=== PATIENT | male | born 1935 | race Caucasian/White ===

== ENCOUNTER 2017-07-19 14:23 | Inpatient (IN) | payer MEDICARE, BC ==
[2017-07-19] MEDS ORDERED: ASPIRIN 325 MG TAB PO STA (14:59)
--- NOTE | 2017-07-19 14:59 | ED ---
General Adult HPI - General Chief complaint: Shortness of Breath Stated complaint: Difficulty Breathing Time Seen by Provider: 07/19/17 14:28 Source: patient, EMS, RN notes reviewed, old records reviewed Mode of arrival: EMS Limitations: no limitations - History of Present Illness Initial comments: Patient is a pleasant 81-year-old male presenting to the emergency department with difficulty in breathing. Onset of symptoms was a couple of days ago. Patient is a somewhat poor historian. Patient was transferred from an outside facility for cardiology evaluation. Patient denies any chest discomfort. Patient does complain of cough and shortness of breath. Cough is been nonproductive. No fevers. Patient does complain of leg swelling. Patient was diagnosed with congestive heart failure. Patient was treated with Lasix as well as Rocephin and heparin. Patient reportedly has some history of atrial fibrillation. - Related Data Home Medications Medication Instructions Recorded Confirmed Levothyroxine Sodium [Synthroid] 112 mcg PO DAILY 02/11/15 07/19/17 Tamsulosin HCl 0.4 mg PO DAILY 02/11/15 07/19/17 Atorvastatin [Lipitor] 10 mg PO DAILY 02/12/15 07/19/17 hydrALAZINE HCL [Apresoline] 50 mg PO DAILY 07/19/17 07/19/17 Previous Rx's Medication Instructions Recorded Aspirin EC [Ecotrin] 325 mg PO DAILY #30 tablet. 02/14/15 Thiamine [Vitamin B-1] 100 mg PO DAILY@1200 #30 tab 02/14/15 Allergies Allergy/AdvReac Type Severity Reaction Status Date / Time No Known Allergies Allergy Verified 07/19/17 15:00 Review of Systems ROS Statement: Those systems with pertinent positive or pertinent negative responses have been documented in the HPI. ROS Other: All systems not noted in ROS Statement are negative. Constitutional: Denies: fever Eyes: Denies: eye pain ENT: Denies: ear pain Respiratory: Reports: cough, dyspnea Cardiovascular: Denies: chest pain Endocrine: Denies: fatigue Gastrointestinal: Denies: abdominal pain Genitourinary: Denies: dysuria Musculoskeletal: Denies: back pain Skin: Denies: rash Neurological: Denies: weakness Past Medical History Past Medical History: Atrial Fibrillation, Heart Failure History of Any Multi-Drug Resistant Organisms: None Reported Past Surgical History: Back Surgery Past Anesthesia/Blood Transfusion Reactions: No Reported Reaction Past Psychological History: No Psychological Hx Reported Smoking Status: Former smoker Past Alcohol Use History: None Reported Past Drug Use History: None Reported - Past Family History Mother Family Medical History: No Reported History General Exam Limitations: no limitations General appearance: alert, in no apparent distress Head exam: Present: atraumatic Eye exam: Present: other (Mild right periorbital edema) ENT exam: Present: normal oropharynx Neck exam: Present: normal inspection Respiratory exam: Present: wheezes, rales Cardiovascular Exam: Present: tachycardia, irregular rhythm GI/Abdominal exam: Present: soft. Absent: tenderness Extremities exam: Present: pedal edema. Absent: calf tenderness Neurological exam: Present: alert Psychiatric exam: Present: normal affect, normal mood Skin exam: Present: normal color Course Vital Signs 07/19/17 07/19/17 14:27 14:52 Temperature 97.9 F Pulse Rate 132 H Pulse Rate [ 132 H Apron Man ] Respiratory 20 Rate Blood Pressure 148/96 O2 Sat by Pulse 96 Oximetry - Reevaluation(s) Reevaluation #1: 07/19/17 14:58 Dr. Reyes has been paged for admission for hospital call. 07/19/17 15:39 Case was discussed with Dr. Reyes, who will admit. EKG Findings - EKG Comments: EKG Findings:: Narrow complex tachycardia at 130. OH 214. QRS 146. QT 382. QTC 562. Right axis. Right bundle branch block. No acute ST change. Medical Decision Making - Lab Data Result diagrams: 07/19/17 15:04 07/19/17 15:04 Disposition Clinical Impression: Congestive heart failure Disposition: ADMITTED IP TO THIS HOSP Decision Time: 14:59
[2017-07-19] MEDS ORDERED: DILTIAZEM 5 MG/ML 5 ML VIAL IVP STA (15:01)
[2017-07-19] MEDS ORDERED: HEPARIN SODIUM,PORCINE 5,000 UNIT/ML 1 ML VIAL IV PRN (15:01)
[2017-07-19] MEDS ORDERED: DILTIAZEM 125 MG in SODIUM CHLORIDE 0.9% 100 ML IV ONE (15:01)
[2017-07-19 15:14] LABS: Basophils % (A) 0 %; Eosinophils % (A) 0 %; HCT 42.2 % (39.0-53.0); Hypochromasia Slight; Lymphocytes # (A) 0.3 k/uL (1.0-4.8); Lymphocytes % (A) 4 %; MCH 31.2 pg (25.0-35.0); MCHC 30.9 g/dL (31.0-37.0); Macrocytosis Slight; Mean Platelet Volume 7.7; Monocytes # (A) 0.1 k/uL (0-1.0); Monocytes % (A) 1 %; Neutrophils # (A) 6.7 k/uL (1.3-7.7); Neutrophils % (A) 93 %; Platelet Count 173 k/uL (150-450); RBC 4.18 m/uL (4.30-5.90); RDW 13.5 % (11.5-15.5); WBC 7.2 k/uL (3.8-10.6)
[2017-07-19 15:23] LABS: INR 1.1 (<1.2); Partial Thromboplastin Time 36.2 sec (22.0-30.0)
[2017-07-19 15:25] LABS: Albumin 3.7 g/dL (3.5-5.0); Calcium 8.8 mg/dL (8.4-10.2); Potassium 4.7 mmol/L (3.5-5.1); Total Bilirubin 0.4 mg/dL (0.2-1.3); Total Protein 6.5 g/dL (6.3-8.2)
[2017-07-19 15:47] LABS: Troponin I 0.033 ng/mL (0.000-0.034)
[2017-07-19 15:52] LABS: Creatine Kinase MB 3.1 ng/mL (0.0-2.4)
[2017-07-19] MEDS: HEPARIN SOD,PORK IN 0.45% NACL 25,000 UNIT in 0.45% NACL 1 500ML.BAG IV SCH (15:53)
--- NOTE | 2017-07-19 16:05 | XR ---
EXAMINATION TYPE: XR chest 1V portable DATE OF EXAM: 07/19/2017 COMPARISON: NONE HISTORY: Chest pain TECHNIQUE: Single frontal view of the chest is obtained. FINDINGS: No pneumothorax is identified. The retrocardiac space is obscured. The cardiac silhouette appears to be moderately enlarged. Emphysematous changes appear extensive. There is a linear strand o f atelectasis in the lingula. IMPRESSION: Retrocardiac space is obscured. This could be due to atelectasis pneumonia pleural effus ion or all the above.
[2017-07-19] MEDS: FUROSEMIDE 10 MG/ML 4 ML VIAL IV SCH ×2 (17:42→23:35)
[2017-07-19] MEDS: NITROGLYCERIN OINT 1 INCH/GM PACKET TOPICAL SCH ×2 (17:42→21:40)
[2017-07-19] MEDS: TAMSULOSIN 0.4 MG CAP.ER.24H PO SCH (21:16)
[2017-07-19] MEDS: ACETAMINOPHEN TAB 325 MG TAB PO PRN (21:35)
[2017-07-19] MEDS: IPRATROPIUM-ALBUTEROL 3 ML NEB INHALATION PRN (21:51)
[2017-07-19] MEDS: cefTRIAXone IN SWFI 1,000 MG/10 ML SYRINGE IVP SCH (22:07)
[2017-07-19 22:11] LABS: Creatine Kinase MB 2.3 ng/mL (0.0-2.4); Troponin I 0.028 ng/mL (0.000-0.034)
[2017-07-19] MEDS: methylPREDNISolone SOD SUCCI 125 MG/2 ML VIAL IV SCH (23:35)
[2017-07-19 23:58] LABS: Appearance,Urine Clear (Clear); Bilirubin,Urine Negative (Negative); Blood,Urine Negative (Negative); Color,Urine Light Yellow; Glucose,Urine (UA) Negative (Negative); Ketones,Urine Negative (Negative); Leukocyte Esterase,Urine Negative (Negative); Nitrite,Urine Negative (Negative); Protein,Urine Negative (Negative); Specific Gravity,Urine 1.007 (1.001-1.035); Urobilinogen,Urine <2.0 mg/dL (<2.0)
--- NOTE | 2017-07-19 23:59 | HP ---
HISTORY AND PHYSICAL DATE OF SERVICE: 07/19/2017 CHIEF COMPLAINTS: Shortness of breath and cough and sputum. HISTORY OF PRESENT ILLNESS: This 81-year-old gentleman with a past medical history of multiple medical problems, including atrial fibrillation, CHF, history of renal disease, history of DJD, back surgery being followed by Dr. Ray as an outpatient is not feeling well over the past several days. Patient recently had a cough and sputum and flu-like symptoms. Subsequently the patient had more difficulty in breathing and the patient was transferred to [facility] from [facility] and was admitted for further evaluation and treatment. The possibility of CHF was considered. Cough was productive. Patient also had significant wheezing. The creatinine is 1.4 and NT proBNP is 21,800. The echocardiogram done in 2014 showed ejection fraction of 55%-60%. There is no history of any fever, rigors. No history of headache, loss of consciousness or seizures. PAST MEDICAL HISTORY: Atrial ablation, CHF, history of renal disease, history of degenerative joint disease. MEDICATIONS PRIOR TO ADMISSION: Include the home medications are: 1. Hydralazine 50 mg p.o. daily. 2. Thiamine 100 mg daily. 3. Flomax 0.4 daily. 4. Synthroid 112 mcg p.o. daily. 5. Lipitor 30 mg daily. 6. Ecotrin 325 mg p.o. daily. ALLERGIES: None. FAMILY HISTORY: No history of heart disease, strokes in the family. SOCIAL HISTORY: Previous history of smoking. No history of current smoking or alcohol intake. REVIEW OF SYSTEMS: ENT: No diminished hearing, diminished vision. CARDIOVASCULAR: As mentioned earlier. RESPIRATORY: As mentioned earlier. GI: As mentioned earlier. : No dysuria. NERVOUS: No numbness or weakness. ALLERGY/IMMUNOLOGY: No asthma or hay fever. MUSCULOSKELETAL: As mentioned earlier. HEMATOLOGY/ONCOLOGY: No history of anemia. ENDOCRINE: Hypothyroidism. CONSTITUTIONAL: As mentioned earlier. DERMATOLOGY: Negative. RHEUMATOLOGY: Negative. PSYCHIATRY: As mentioned earlier. PHYSICAL EXAMINATION: Alert and oriented x3. Pulse 87, blood pressure 190/67, respirations 18, temperature 97.6, pulse ox 93% on room air. HEENT: Conjunctivae normal. Oral mucosa moist. NECK: No jugular venous distention. No carotid bruits. No lymph node enlargement. CARDIOVASCULAR: S1, S2 muffled. S3 present. Ejection systolic murmur present. RESPIRATORY: Breathing effort markedly increased. Bilaterally scattered rhonchi, expiratory wheezing and a few crackles, also. ABDOMEN: Soft, nontender. No mass palpable. Obese. LEGS: Minimal edema. NERVOUS SYSTEM: Higher functions as mentioned earlier. Moves all 4 limbs. No focal motor or sensory deficits. LYMPHATIC: No lymphadenopathy in neck or axillae. SKIN: No ulcer, rash or bleeding. LABS: At this time show MCV 101.3 and hemoglobin is 13. Sodium 140, potassium 4.7. Chest x- ray was reported showing obscured retrocardiac space. The EKG shows right bundle branch block as well as some possible sinus tachycardia with a 1st-degree AV block. ASSESSMENT: 1. Shortness of breath, possibly congestive heart failure acute exacerbation, ejection fraction unknown. 2. Possible chronic obstructive pulmonary disease acute exacerbation with acute purulent tracheobronchitis. 3. Sinus tachycardia with a right bundle block and 1st-degree AV block. 4. History of congestive heart failure. 5. History of atrial fibrillation. 6. History of transient ischemic attack. 7. Remote history of nicotine dependence. 8. Hypothyroidism. 9. History of degenerative joint disease. 10.History of chronic kidney disease stage 3. 11.FULL CODE. RECOMMENDATIONS AND DISCUSSION: In this 81-year-old gentleman who presented with multiple complex medical issues, will monitor the patient closely, continue the current medical management and symptomatic treatment. I recommend cautious diuretics and Lasix. The patient is on Cardizem drip. I would recommend to hold the Cardizem drip and recommend a cardiology consultation, a 2D echo with Doppler, complete set of troponins. I would also recommend bronchodilators and empiric antibiotics. The patient very well could have had a recent flu episode, also. The prognosis guarded because of multiple complex medical issues. Further recommendations to follow. A copy of the dictation will be forwarded to Dr. Ray, who is the primary physician. MMODL / IJN: [id number] /
[2017-07-20 04:23] LABS: Basophils % (A) 0 %; Calcium 8.6 mg/dL (8.4-10.2); Eosinophils % (A) 0 %; HCT 40.6 % (39.0-53.0); HGB 12.2 gm/dL (13.0-17.5); Hypochromasia Moderate; Lymphocytes # (A) 0.4 k/uL (1.0-4.8); Lymphocytes % (A) 6 %; MCH 31.1 pg (25.0-35.0); MCHC 30.1 g/dL (31.0-37.0); MCV 103.5 fL (80.0-100.0); Macrocytosis Slight; Mean Platelet Volume 8.1; Monocytes # (A) 0.2 k/uL (0-1.0); Monocytes % (A) 2 %; Neutrophils # (A) 6.8 k/uL (1.3-7.7); Neutrophils % (A) 92 %; Platelet Count 181 k/uL (150-450); Potassium 4.7 mmol/L (3.5-5.1); RBC 3.93 m/uL (4.30-5.90); RDW 13.4 % (11.5-15.5); WBC 7.5 k/uL (3.8-10.6)
[2017-07-20 04:50] LABS: Creatine Kinase MB 2.2 ng/mL (0.0-2.4); Troponin I 0.033 ng/mL (0.000-0.034)
[2017-07-20] MEDS: IPRATROPIUM-ALBUTEROL 3 ML NEB INHALATION PRN (04:55)
[2017-07-20 05:31] LABS: T4, Free (Free Thyroxine) 1.55 ng/dL (0.78-2.19)
[2017-07-20] MEDS: ACETAMINOPHEN TAB 325 MG TAB PO PRN (06:14)
[2017-07-20] MEDS: methylPREDNISolone SOD SUCCI 125 MG/2 ML VIAL IV SCH ×2 (06:15→11:36)
[2017-07-20 06:19] LABS: Glucose,Whole Blood 190 mg/dL (75-99)
[2017-07-20] MEDS: INSULIN ASPART 100 UNIT/ML 1 ML 10 ML VIAL SQ SCH ×4 (07:01→21:45)
[2017-07-20] MEDS: FUROSEMIDE 10 MG/ML 4 ML VIAL IV SCH ×3 (08:54→23:45)
[2017-07-20] MEDS: ATORVASTATIN 10 MG TAB PO SCH (08:55)
[2017-07-20] MEDS: TAMSULOSIN 0.4 MG CAP.ER.24H PO SCH (08:55)
[2017-07-20] MEDS: NITROGLYCERIN OINT 1 INCH/GM PACKET TOPICAL SCH ×4 (08:55→21:44)
[2017-07-20] MEDS: ASPIRIN 325 MG TAB PO SCH (08:55)
[2017-07-20] MEDS: hydrALAZINE HCL 50 MG TAB PO SCH (08:55)
[2017-07-20] MEDS ORDERED: NON-FORMULARY DRUG (Aspirin Ec 325 MG) PO SCH (09:00)
[2017-07-20] MEDS: IPRATROPIUM-ALBUTEROL 3 ML NEB INHALATION SCH ×4 (10:00→22:06)
[2017-07-20] MEDS: THIAMINE 100 MG TAB PO SCH (11:37)
[2017-07-20] MEDS: LEVOTHYROXINE 112 MCG TAB PO SCH (11:37)
[2017-07-20 11:47] LABS: Glucose,Whole Blood 267 mg/dL (75-99)
--- NOTE | 2017-07-20 11:54 | P.CRDCN ---
History of Present Illness Consult date: 07/20/17 History of present illness: This is a 81-year-old gentleman with history of atrial fibrillation, CHF, chronic renal disease being followed by Dr. Ray, was transferred to this hospital because of complaints of increasing shortness of breath. Patient has been having cough with sputum production and flulike symptoms several days prior to this transfer. Patient did not complain of any chest pain. His proBNP was more than 21,000. An echocardiogram done the in 2014 showed an ejection fraction of 55%. Would not have any recent ones. Patient was treated with IV Lasix. Patient is feeling better. A chest x-ray showed possible infiltrate and possible CHF. He does have significant pedal edema. We'll continue current medical therapy. Is scheduled to have an echocardiogram done tomorrow Past Medical History Past Medical History: Atrial Fibrillation, Heart Failure, Renal Disease History of Any Multi-Drug Resistant Organisms: None Reported Past Surgical History: Back Surgery Past Anesthesia/Blood Transfusion Reactions: No Reported Reaction Past Psychological History: No Psychological Hx Reported Smoking Status: Former smoker Past Alcohol Use History: None Reported Past Drug Use History: None Reported - Past Family History Mother Family Medical History: No Reported History Medications and Allergies Home Medications Medication Instructions Recorded Confirmed Type Levothyroxine Sodium [Synthroid] 112 mcg PO DAILY 02/11/15 07/19/17 History Tamsulosin HCl 0.4 mg PO DAILY 02/11/15 07/19/17 History Atorvastatin [Lipitor] 10 mg PO DAILY 02/12/15 07/19/17 History Aspirin EC [Ecotrin] 325 mg PO DAILY #30 tablet. 02/14/15 07/19/17 Rx Thiamine [Vitamin B-1] 100 mg PO DAILY@1200 #30 tab 02/14/15 07/19/17 Rx hydrALAZINE HCL [Apresoline] 50 mg PO DAILY 07/19/17 07/19/17 History Allergies Allergy/AdvReac Type Severity Reaction Status Date / Time No Known Allergies Allergy Verified 07/19/17 15:00 Physical Exam Vitals: Vital Signs Temp Pulse Pulse Resp BP BP Pulse Ox 07/20/17 08:58 97.8 F 88 18 114/54 95 07/20/17 05:05 104 H 07/20/17 04:55 101 H 07/20/17 04:00 98.4 F 92 19 115/64 92 L 07/20/17 00:00 98.3 F 103 H 18 134/67 93 L 07/19/17 22:06 88 07/19/17 21:55 84 07/19/17 20:00 97.6 F 87 18 119/67 93 L 07/19/17 17:10 129 H 16 123/81 96 07/19/17 16:55 97.8 F 129 H 16 123/81 96 07/19/17 15:56 121 H 18 123/78 95 07/19/17 14:52 132 H 07/19/17 14:27 97.9 F 132 H 20 148/96 96 Intake and Output 07/19/17 07/20/17 07/20/17 22:59 06:59 14:59 Intake Total 342.801 447.714 Output Total 300 200 Balance 42.801 247.714 Intake: Intake, IV Titration 142.801 197.714 Amount Diltiazem 125 mg In 28.333 0 Sodium Chloride 0.9% 100 ml @ 5 MG/HR 5 mls/hr IV .Q24H ONE Rx#:[id number] Heparin Sod,Pork in 0.45% 114.468 197.714 NaCl 25,000 unit In 0.45 % NaCl 1 500ml.bag @ 11.4 UNITS/KG/HR 19.85 mls/hr IV .Q24H REPLACED BY [facility] Rx#: [id number] Oral 200 250 Output: Urine 300 200 Other: Voiding Method Urinal Urinal Urinal Weight 97.9 kg GENERAL EXAM: Patient is alert and oriented and doesn't appear to be in any acute distress HEENT: Normocephalic. Normal reaction of pupils, equal size, normal range of extraocular motion. No erythema or exudates in the throat. NECK: No masses, no nuchal rigidity. CHEST: No chest wall deformity. LUNGS: Rales at the left base HEART: S1 and S2 normal with no audible mumurs or gallops. Regular rhythm, femorals equal on both sides.. ABDOMEN: No hepatosplenomegaly, normal bowel sounds, no guarding or rigidity. SKIN: No rashes CENTRAL NERVOUS SYSTEM: No focal deficits. EXTREMITIES: 2+ edema Results 07/20/17 03:24 07/20/17 03:24 Cardiac Enzymes 07/19/17 07/19/17 07/19/17 Range/Units 15:04 15:04 21:04 AST 39 (17-59) U/L CK-MB (CK-2) 3.1 H* 2.3 (0.0-2.4) ng/mL Troponin I 0.033 0.028 (0.000-0.034) ng/mL 07/20/17 Range/Units 03:24 AST (17-59) U/L CK-MB (CK-2) 2.2 (0.0-2.4) ng/mL Troponin I 0.033 (0.000-0.034) ng/mL Coagulation 07/19/17 07/19/17 07/20/17 Range/Units 15:04 21:04 04:56 PT 11.0 (9.0-12.0) sec APTT 36.2 H 36.7 H 62.4 H (22.0-30.0) sec CBC 07/19/17 07/20/17 Range/Units 15:04 03:24 WBC 7.2 7.5 (3.8-10.6) k/uL RBC 4.18 L 3.93 L (4.30-5.90) m/uL Hgb 13.0 12.2 L (13.0-17.5) gm/dL Hct 42.2 40.6 (39.0-53.0) % Plt Count 173 181 (150-450) k/uL Comprehensive Metabolic Panel 07/19/17 07/20/17 Range/Units 15:04 03:24 Sodium 145 143 (137-145) mmol/L Potassium 4.7 4.7 (3.5-5.1) mmol/L Chloride 106 104 (98-107) mmol/L Carbon Dioxide 28 28 (22-30) mmol/L BUN 36 H 43 H (9-20) mg/dL Creatinine 1.40 H 1.60 H (0.66-1.25) mg/dL Glucose 143 H 164 H (74-99) mg/dL Calcium 8.8 8.6 (8.4-10.2) mg/dL AST 39 (17-59) U/L ALT 42 (21-72) U/L Alkaline Phosphatase 74 (38-126) U/L Total Protein 6.5 (6.3-8.2) g/dL Albumin 3.7 (3.5-5.0) g/dL Current Medications Generic Name Dose Route Start Last Admin Trade Name Freq PRN Reason Stop Dose Admin Acetaminophen 650 mg 07/19/17 21:20 07/20/17 06:14 Tylenol Tab PO 650 mg Q6HR PRN Administration Fever and/ or Pain Albuterol/Ipratropium 3 ml 07/20/17 08:00 Duoneb 0.5 Mg-3 Mg/3 Ml Soln INHALATION RT-QID SEA Albuterol/Ipratropium 3 ml 07/19/17 21:20 07/20/17 04:55 Duoneb 0.5 Mg-3 Mg/3 Ml Soln INHALATION 3 ml RT-Q2H PRN Administration Shortness Of Breath Or Wheezing Aspirin 325 mg 07/20/17 12:00 07/20/17 08:55 Aspirin PO 325 mg DAILY SEA Administration Atorvastatin Calcium 10 mg 07/20/17 09:00 07/20/17 08:55 Lipitor PO 10 mg DAILY SEA Administration Ceftriaxone Sodium 1,000 mg 07/19/17 21:45 07/19/17 22:07 Rocephin IVP 1,000 mg Q24H SEA Administration Furosemide 40 mg 07/19/17 16:00 07/20/17 08:54 Lasix IV 40 mg Q8H SEA Administration Heparin Sodium (Porcine) 0 unit 07/19/17 15:01 07/19/17 21:38 Heparin IV 4,000 unit PER PROTOCOL PRN Administration Low PTT Protocol Hydralazine HCl 50 mg 07/20/17 09:00 07/20/17 08:55 Apresoline PO 50 mg DAILY SEA Administration Heparin Sodium/Sodium Chloride 500 mls @ 19.85 mls/hr 07/19/17 15:15 05:32 25,000 unit/ Sodium Chloride IV 14.4 units/kg/hr .Q24H SEA 25.08 mls/hr Protocol Titration 11.4 UNITS/KG/HR Diltiazem HCl 125 mg/ Sodium 125 mls @ 5 mls/hr 07/19/17 15:01 07/19/17 23:30 Chloride IV 07/20/17 15:00 5 mg/hr .Q24H ONE 5 mls/hr 5 MG/HR Infusion Insulin Aspart 0 unit 07/20/17 07:30 07/20/17 07:01 Novolog SQ 2 unit ACHS SEA Administration Protocol Levothyroxine Sodium 112 mcg 07/20/17 06:30 07/20/17 11:37 Synthroid PO 112 mcg DAILY@0630 SEA Administration Methylprednisolone Sodium Succinate 60 mg 07/20/17 00:00 07/20/17 11:36 Solu-Medrol IV 60 mg Q6HR SEA Administration Nitroglycerin 1 inch 07/19/17 18:00 07/20/17 11:36 Nitro-Bid Oint TOPICAL 1 inch QID SEA Administration Sodium Chloride 10 ml 07/19/17 21:00 07/20/17 11:39 Saline Flush IV Not Given BID REPLACED BY [facility] Tamsulosin HCl 0.4 mg 07/19/17 20:15 07/20/17 08:55 Flomax PO 0.4 mg DAILY SEA Administration Thiamine HCl 100 mg 07/20/17 12:00 07/20/17 11:37 Vitamin B-1 PO 100 mg DAILY@1200 SEA Administration Intake and Output 07/19/17 07/20/17 07/20/17 22:59 06:59 14:59 Intake Total 342.801 447.714 Output Total 300 200 Balance 42.801 247.714 Intake: Intake, IV Titration 142.801 197.714 Amount Diltiazem 125 mg In 28.333 0 Sodium Chloride 0.9% 100 ml @ 5 MG/HR 5 mls/hr IV .Q24H ONE Rx#:[id number] Heparin Sod,Pork in 0.45% 114.468 197.714 NaCl 25,000 unit In 0.45 % NaCl 1 500ml.bag @ 11.4 UNITS/KG/HR 19.85 mls/hr IV .Q24H REPLACED BY [facility] Rx#: [id number] Oral 200 250 Output: Urine 300 200 Other: Voiding Method Urinal Urinal Urinal Weight 97.9 kg 07/20/17 03:24 07/20/17 03:24 EKG Interpretations (text) Sinus tachycardia with a right bundle branch block and first-degree AV block Assessment and Plan (1) History of atrial fibrillation Current Visit: Yes Status: Acute Code(s): Z86.79 - PERSONAL HISTORY OF OTHER DISEASES OF THE CIRCULATORY SYSTEM SNOMED Code(s): 845856958 (2) Congestive heart failure Current Visit: Yes Status: Acute Code(s): I50.9 - HEART FAILURE, UNSPECIFIED SNOMED Code(s): 71289023 (3) History of chronic kidney disease Current Visit: Yes Status: Acute Code(s): Z87.448 - PERSONAL HISTORY OF OTHER DISEASES OF URINARY SYSTEM SNOMED Code(s): 031429132 Plan: Continue current medical therapy. Echocardiogram to be done tomorrow. Further recommendations depend upon clinical course
[2017-07-20] MEDS: HEPARIN SOD,PORK IN 0.45% NACL 25,000 UNIT in 0.45% NACL 1 500ML.BAG IV SCH (13:21)
[2017-07-20 17:14] LABS: Glucose,Whole Blood 119 mg/dL (75-99)
--- NOTE | 2017-07-20 17:21 | PN ---
PROGRESS NOTE DATE OF SERVICE: 07/20/2017 This 81-year-old gentleman admitted with shortness of breath with combination of CHF and COPD acute exacerbation is being closely monitored. No chest pain. No palpitations. No fever. The patient is feeling slightly better. EXAM: Alert and oriented x3. Pulse is 88, blood pressure 114/52, respiration 18, temperature 97.8, pulse ox 94% on 2 L. HEENT: Conjunctivae normal. NECK: No jugular venous distention. CARDIOVASCULAR: S1, S2 muffled. RESPIRATORY: Breath sounds diminished in the bases. A few scattered rhonchi and crackles. Expiratory wheezing also present. ABDOMEN: Soft, nontender. LEGS: No edema. No swelling. NERVOUS SYSTEM: No focal deficits. LAB STUDIES: WBC is 9, hemoglobin 12.2. Creatinine 1.6. ASSESSMENT: 1. Congestive heart failure acute exacerbation with ejection fraction unknown. 2. Possible chronic obstructive pulmonary disease acute exacerbation with acute ventricular bronchitis. 3. Sinus tachycardia with right bundle branch block, possibly AV block. 4. Multiple PACs. 5. History of congestive heart failure. 6. History of atrial fibrillation. 7. History of transient ischemic attack. 8. Remote history of nicotine dependence. 9. Chronic kidney disease stage 3. 10.Hypothyroidism. 11.History of degenerative joint disease. 12.FULL CODE. RECOMMENDATIONS AND DISCUSSION: I recommend to continue current medications, symptomatic treatment. Otherwise at this time I would recommend closely follow with Cardiology. 2-D echo with Doppler. Taper the steroids. Increase ambulation. Guarded prognosis because of multiple complex medical issues. Further recommendations to follow. MMODL / IJN: [id number] /
[2017-07-20 21:09] LABS: Glucose,Whole Blood 192 mg/dL (75-99)
[2017-07-20] MEDS: cefTRIAXone IN SWFI 1,000 MG/10 ML SYRINGE IVP SCH (21:44)
[2017-07-20] MEDS: methylPREDNISolone SOD SUCCI 40 MG/ML 1 ML VIAL IV SCH (23:47)
[2017-07-21] MEDS: ACETAMINOPHEN TAB 325 MG TAB PO PRN ×2 (03:36→12:27)
[2017-07-21 05:11] LABS: Basophils % (A) 0 %; Eosinophils % (A) 0 %; HCT 41.3 % (39.0-53.0); HGB 12.9 gm/dL (13.0-17.5); Hypochromasia Slight; Lymphocytes # (A) 0.3 k/uL (1.0-4.8); Lymphocytes % (A) 2 %; MCH 31.9 pg (25.0-35.0); MCHC 31.1 g/dL (31.0-37.0); MCV 102.5 fL (80.0-100.0); Macrocytosis Slight; Mean Platelet Volume 7.8; Monocytes # (A) 0.7 k/uL (0-1.0); Monocytes % (A) 4 %; Neutrophils # (A) 15.9 k/uL (1.3-7.7); Neutrophils % (A) 93 %; Platelet Count 194 k/uL (150-450); RBC 4.04 m/uL (4.30-5.90); RDW 13.6 % (11.5-15.5); WBC 17.1 k/uL (3.8-10.6)
[2017-07-21 05:41] LABS: Potassium 4.7 mmol/L (3.5-5.1)
[2017-07-21 06:04] LABS: Glucose,Whole Blood 119 mg/dL (75-99)
[2017-07-21] MEDS: INSULIN ASPART 100 UNIT/ML 1 ML 10 ML VIAL SQ SCH ×3 (06:29→17:38)
[2017-07-21] MEDS: LEVOTHYROXINE 112 MCG TAB PO SCH (06:50)
[2017-07-21] MEDS: hydrALAZINE HCL 50 MG TAB PO SCH (08:58)
[2017-07-21] MEDS: ATORVASTATIN 10 MG TAB PO SCH (08:58)
[2017-07-21] MEDS: TAMSULOSIN 0.4 MG CAP.ER.24H PO SCH (08:58)
[2017-07-21] MEDS: ASPIRIN 325 MG TAB PO SCH (08:58)
[2017-07-21] MEDS: FUROSEMIDE 10 MG/ML 4 ML VIAL IV SCH ×2 (08:59→18:02)
[2017-07-21] MEDS: THIAMINE 100 MG TAB PO SCH (08:59)
[2017-07-21] MEDS: NITROGLYCERIN OINT 1 INCH/GM PACKET TOPICAL SCH ×3 (08:59→18:02)
[2017-07-21] MEDS: methylPREDNISolone SOD SUCCI 40 MG/ML 1 ML VIAL IV SCH ×2 (08:59→18:02)
[2017-07-21] MEDS: IPRATROPIUM-ALBUTEROL 3 ML NEB INHALATION SCH ×5 (09:12→20:32)
--- NOTE | 2017-07-21 11:11 | ECHOF ---
Referral Reason:chf MEASUREMENTS -------- HEIGHT: 177.8 cm WEIGHT: 95.7 kg BP: 129/65 IVSd: 2.3 cm (0.6 - 1.1) LVIDd: 4.2 cm (3.9 - 5.3) LVPWd: 1.2 cm (0.6 - 1.1) IVSs: 2.9 cm LVIDs: 1.8 cm LVPWs: 1.9 cm LAESV Index (A-L): 53.79 ml/m Ao Diam: 3.9 cm (2.0 - 3.7) AV Cusp: 1.4 cm (1.5 - 2.6) LA Diam: 4.7 cm (2.7 - 3.8) MV EXCURSION: 17.007 mm (> 18.000) MV EF SLOPE: 115 mm/s (70 - 150) EPSS: 1.5 cm RAP: 5.00 mmHg RVSP: 46.49 mmHg FINDINGS -------- Atrial fibrillation. This was a technically difficult study with suboptimal views. The left ventricular size is normal. There is severe concentric left ventricular hypertrophy. The re is moderate global hypokinesis of LV . Overall left ventricular systolic function is moderately impaired with, an EF between 35 - 40 %. The right ventricle is mild to moderately enlarged. LA is severely dilated >40 ml/m2 The right atrium is normal in size. 1.5mg of Definity was utilized for enhancement of images There is mild aortic valve sclerosis. Trace to mild aortic regurgitation. The mitral valve leaflets are mildly thickened. [id number] mitral regurgitation is present. Moderate tricuspid regurgitation present. There is mild pulmonary hypertension. The right ventric ular systolic pressure, as measured by Doppler, is 46.49mmHg. There is no pulmonic regurgitation present. The aortic root size is normal. There is a small, generalized pericardial effusion present. CONCLUSIONS -------- 1. Atrial fibrillation. 2. This was a technically difficult study with suboptimal views. 3. The left ventricular size is normal. 4. There is severe concentric left ventricular hypertrophy. 5. There is moderate global hypokinesis of LV . 6. Overall left ventricular systolic function is moderately impaired with, an EF between 35 - 40 %. 7. The right ventricle is mild to moderately enlarged. 8. LA is severely dilated >40 ml/m2 9. Lumason used 10. There is mild aortic valve sclerosis. 11. Trace to mild aortic regurgitation. 12. The mitral valve leaflets are mildly thickened. 13. [id number] mitral regurgitation is present. 14. Moderate tricuspid regurgitation present. 15. There is mild pulmonary hypertension. 16. The right ventricular systolic pressure, as measured by Doppler, is 46.49mmHg. 17. There is no pulmonic regurgitation present. 18. The aortic root size is normal. 19. There is a small, generalized pericardial effusion present. CASTING SORTER: Rola Caruso RDCS
[2017-07-21 11:52] LABS: Glucose,Whole Blood 133 mg/dL (75-99)
[2017-07-21] MEDS: DOCUSATE 100 MG CAP PO SCH (12:29)
[2017-07-21] MEDS: SENNOSIDES-DOCUSATE SODIUM 1 EACH TAB PO SCH (12:29)
--- NOTE | 2017-07-21 16:15 | P.PN ---
Subjective Progress Note Date: 07/21/17 This is a 81-year-old gentleman with history of atrial fibrillation, CHF, chronic renal disease being followed by Dr. Ray, was transferred to this hospital because of complaints of increasing shortness of breath. Patient has been having cough with sputum production and flulike symptoms several days prior to this transfer. Patient did not complain of any chest pain. His proBNP was more than 21,000. An echocardiogram done the in 2014 showed an ejection fraction of 55%. Would not have any recent ones. Patient was treated with IV Lasix. Patient is feeling better. A chest x-ray showed possible infiltrate and possible CHF. He does have significant pedal edema. We'll continue current medical therapy. Is scheduled to have an echocardiogram done tomorrow. 07/21/2017 Patient seen and examined this morning, continues to be on IV Lasix, weight is down 2 kg today. Echocardiogram with Doppler study was performed, which reveals an ejection fraction of 35-40%.mild to moderate mitral regurgitation, moderate tricuspid regurgitation. White blood cell count 17.1, hemoglobin 12.9, BUN 57, creatinine 2.0. Objective - Vital Signs Vital signs: Vital Signs Temp 97.7 F 07/21/17 12:00 Pulse 82 07/21/17 12:00 Resp 19 07/21/17 12:00 BP 118/61 07/21/17 12:00 Pulse Ox 92 L 07/21/17 12:00 Intake & Output 07/20/17 07/21/17 07/21/17 18:59 06:59 18:59 Intake Total 727.818 360 Output Total 600 1000 100 Balance 127.818 -1000 260 Weight 95.8 kg Intake: Intake, IV Titration 187.818 Amount Heparin Sod,Pork in 0.45% 187.818 NaCl 25,000 unit In 0.45 % NaCl 1 500ml.bag @ 11.4 UNITS/KG/HR 19.85 mls/hr IV .Q24H SEA Rx#: [id number] Oral 540 360 Output: Urine 600 1000 100 Other: Voiding Method Urinal Urinal Urinal # Voids 1 100 # Bowel Movements 1 - Exam PHYSICAL EXAMINATION: HEENT: [Head is atraumatic, normocephalic. Pupils equal, round. Neck is supple. There is no elevated jugular venous pressure.] HEART EXAMINATION: [Heart S1, S2 systolic murmur is heard. No murmur or gallop heard.] CHEST EXAMINATION:[ Lungs reveal fine rales to bilateral bases. No chest wall tenderness is noted on palpation or with deep breathing.] ABDOMEN: [ Soft, nontender. Bowel sounds are heard. No organomegaly noted]. EXTREMITIES:[ 2+ peripheral pulses with no evidence of peripheral edema and no calf tenderness noted]. NEUROLOGIC [patient is awake, alert and oriented -3.] . - Labs CBC & Chem 7: 07/21/17 04:15 07/21/17 04:15 Labs: Abnormal Lab Results - Last 24 Hours (Table) 07/20/17 07/20/17 07/21/17 Range/Units 16:54 21:08 04:15 WBC 17.1 H (3.8-10.6) k/uL RBC 4.04 L (4.30-5.90) m/uL Hgb 12.9 L (13.0-17.5) gm/dL MCV 102.5 H (80.0-100.0) fL Neutrophils # 15.9 H (1.3-7.7) k/uL Lymphocytes # 0.3 L (1.0-4.8) k/uL APTT (22.0-30.0) sec BUN (9-20) mg/dL Creatinine (0.66-1.25) mg/dL Glucose (74-99) mg/dL POC Glucose (mg/dL) 119 H 192 H (75-99) mg/dL 07/21/17 07/21/17 07/21/17 Range/Units 04:15 04:15 06:01 WBC (3.8-10.6) k/uL RBC (4.30-5.90) m/uL Hgb (13.0-17.5) gm/dL MCV (80.0-100.0) fL Neutrophils # (1.3-7.7) k/uL Lymphocytes # (1.0-4.8) k/uL APTT 50.7 H (22.0-30.0) sec BUN 57 H (9-20) mg/dL Creatinine 2.00 H (0.66-1.25) mg/dL Glucose 131 H (74-99) mg/dL POC Glucose (mg/dL) 119 H (75-99) mg/dL 07/21/17 Range/Units 11:43 WBC (3.8-10.6) k/uL RBC (4.30-5.90) m/uL Hgb (13.0-17.5) gm/dL MCV (80.0-100.0) fL Neutrophils # (1.3-7.7) k/uL Lymphocytes # (1.0-4.8) k/uL APTT (22.0-30.0) sec BUN (9-20) mg/dL Creatinine (0.66-1.25) mg/dL Glucose (74-99) mg/dL POC Glucose (mg/dL) 133 H (75-99) mg/dL Assessment and Plan Plan: Assessment and plan #1 systolic congestive heart failure acute on chronic #2 acute on chronic kidney disease #3 chronic persistent atrial fibrillation, currently on IV heparin. Heart rate in the 90s. plan From cardiology's perspective, we will recommend to continue current dose of IV Lasix. We will also check to see if the patient has coverage for one of the newer anticoagulants, if so we will initiate tomorrow. DNP note has been reviewed, I agree with a documented findings and plan of care. Patient was seen and examined.
[2017-07-21 17:26] LABS: Glucose,Whole Blood 126 mg/dL (75-99)
[2017-07-21 20:42] LABS: Glucose,Whole Blood 139 mg/dL (75-99)
[2017-07-22] MEDS: NITROGLYCERIN OINT 1 INCH/GM PACKET TOPICAL SCH ×3 (00:44→12:37)
[2017-07-22] MEDS: cefTRIAXone IN SWFI 1,000 MG/10 ML SYRINGE IVP SCH (00:46)
[2017-07-22] MEDS: FUROSEMIDE 10 MG/ML 4 ML VIAL IV SCH ×2 (00:48→09:17)
[2017-07-22] MEDS: DOCUSATE 100 MG CAP PO SCH ×3 (00:49→20:09)
[2017-07-22] MEDS: INSULIN ASPART 100 UNIT/ML 1 ML 10 ML VIAL SQ SCH ×4 (00:49→17:28)
[2017-07-22] MEDS: SENNOSIDES-DOCUSATE SODIUM 1 EACH TAB PO SCH ×3 (00:49→20:06)
[2017-07-22] MEDS: methylPREDNISolone SOD SUCCI 40 MG/ML 1 ML VIAL IV SCH ×2 (00:52→09:17)
[2017-07-22] MEDS ORDERED: DILTIAZEM 125 MG in SODIUM CHLORIDE 0.9% 100 ML IV SCH (01:15)
[2017-07-22 06:23] LABS: Glucose,Whole Blood 118 mg/dL (75-99)
[2017-07-22] MEDS: IPRATROPIUM-ALBUTEROL 3 ML NEB INHALATION SCH ×4 (07:01→21:27)
[2017-07-22 08:30] LABS: Basophils % (A) 0 %; Eosinophils % (A) 0 %; HCT 41.9 % (39.0-53.0); Hypochromasia Slight; Lymphocytes # (A) 0.3 k/uL (1.0-4.8); Lymphocytes % (A) 2 %; MCH 31.1 pg (25.0-35.0); MCHC 31.1 g/dL (31.0-37.0); MCV 100.2 fL (80.0-100.0); Mean Platelet Volume 7.8; Monocytes # (A) 0.7 k/uL (0-1.0); Monocytes % (A) 5 %; Neutrophils # (A) 14.1 k/uL (1.3-7.7); Neutrophils % (A) 93 %; Platelet Count 206 k/uL (150-450); RBC 4.18 m/uL (4.30-5.90); RDW 13.5 % (11.5-15.5); WBC 15.3 k/uL (3.8-10.6)
[2017-07-22] MEDS: HEPARIN SOD,PORK IN 0.45% NACL 25,000 UNIT in 0.45% NACL 1 500ML.BAG IV SCH ×2 (08:56→17:44)
[2017-07-22 09:02] LABS: Calcium 8.9 mg/dL (8.4-10.2); Potassium 4.8 mmol/L (3.5-5.1)
[2017-07-22] MEDS: ASPIRIN 325 MG TAB PO SCH (09:14)
[2017-07-22] MEDS: LEVOTHYROXINE 112 MCG TAB PO SCH (09:14)
[2017-07-22] MEDS: hydrALAZINE HCL 50 MG TAB PO SCH (09:15)
[2017-07-22] MEDS: ATORVASTATIN 10 MG TAB PO SCH (09:15)
[2017-07-22] MEDS: TAMSULOSIN 0.4 MG CAP.ER.24H PO SCH (09:16)
[2017-07-22] MEDS ORDERED: PANTOPRAZOLE 40 MG/10 ML VIAL IVP SCH (09:45)
[2017-07-22 11:11] VITALS: BMI 30.7
[2017-07-22 12:03] LABS: Glucose,Whole Blood 123 mg/dL (75-99)
[2017-07-22] MEDS: THIAMINE 100 MG TAB PO SCH (12:37)
--- NOTE | 2017-07-22 15:18 | P.PN ---
Subjective Progress Note Date: 07/22/17 This is a 81-year-old gentleman with history of atrial fibrillation, CHF, chronic renal disease being followed by Dr. Ray, was transferred to this hospital because of complaints of increasing shortness of breath. Patient has been having cough with sputum production and flulike symptoms several days prior to this transfer. Patient did not complain of any chest pain. His proBNP was more than 21,000. An echocardiogram done the in 2014 showed an ejection fraction of 55%. Would not have any recent ones. Patient was treated with IV Lasix. Patient is feeling better. A chest x-ray showed possible infiltrate and possible CHF. He does have significant pedal edema. We'll continue current medical therapy. Is scheduled to have an echocardiogram done tomorrow. 07/21/2017 Patient seen and examined this morning, continues to be on IV Lasix, weight is down 2 kg today. Echocardiogram with Doppler study was performed, which reveals an ejection fraction of 35-40%.mild to moderate mitral regurgitation, moderate tricuspid regurgitation. White blood cell count 17.1, hemoglobin 12.9, BUN 57, creatinine 2.0. 07/22/2017 Patient seen and examined this morning, stable overall. Continues to be on IV heparin. His heart rate is stable. We will check to see if the patient has coverage for one of the newer anticoagulants. IV Lasix was discontinued and patient was initiated on oral diuretics. Roxi today is 2.3 up from 2.0 yesterday, 1.4 from admission. Objective - Vital Signs Vital signs: Vital Signs Temp 97.1 F L 07/22/17 11:00 Pulse 92 07/22/17 12:07 Resp 14 07/22/17 11:00 BP 126/72 07/22/17 11:00 Pulse Ox 94 L 07/22/17 11:00 Intake & Output 07/21/17 07/22/17 07/22/17 18:59 06:59 18:59 Intake Total 480 180 Output Total 100 550 650 Balance 380 -550 -470 Weight 99.8 kg 99.8 kg Intake: Oral 480 180 Output: Urine 100 550 650 Other: Voiding Method Urinal Urinal Urinal Diaper Diaper # Voids 100 1 1 # Bowel Movements 1 - Exam PHYSICAL EXAMINATION: HEENT: [Head is atraumatic, normocephalic. Pupils equal, round. Neck is supple. There is no elevated jugular venous pressure.] HEART EXAMINATION: [Heart S1, S2 systolic murmur is heard. No murmur or gallop heard.] CHEST EXAMINATION:[ Lungs reveal fine rales to bilateral bases. No chest wall tenderness is noted on palpation or with deep breathing.] ABDOMEN: [ Soft, nontender. Bowel sounds are heard. No organomegaly noted]. EXTREMITIES:[ 2+ peripheral pulses with no evidence of peripheral edema and no calf tenderness noted]. NEUROLOGIC [patient is awake, alert and oriented -3.] . - Labs CBC & Chem 7: 07/22/17 08:01 07/22/17 08:01 Labs: Abnormal Lab Results - Last 24 Hours (Table) 07/21/17 07/21/17 07/22/17 Range/Units 17:19 20:41 06:21 WBC (3.8-10.6) k/uL RBC (4.30-5.90) m/uL MCV (80.0-100.0) fL Neutrophils # (1.3-7.7) k/uL Lymphocytes # (1.0-4.8) k/uL BUN (9-20) mg/dL Creatinine (0.66-1.25) mg/dL Glucose (74-99) mg/dL POC Glucose (mg/dL) 126 H 139 H 118 H (75-99) mg/dL 07/22/17 07/22/17 07/22/17 Range/Units 08:01 08:01 11:59 WBC 15.3 H (3.8-10.6) k/uL RBC 4.18 L (4.30-5.90) m/uL MCV 100.2 H (80.0-100.0) fL Neutrophils # 14.1 H (1.3-7.7) k/uL Lymphocytes # 0.3 L (1.0-4.8) k/uL BUN 68 H (9-20) mg/dL Creatinine 2.34 H (0.66-1.25) mg/dL Glucose 149 H (74-99) mg/dL POC Glucose (mg/dL) 123 H (75-99) mg/dL Assessment and Plan Plan: Assessment and plan #1 systolic congestive heart failure acute on chronic #2 acute on chronic kidney disease #3 chronic persistent atrial fibrillation, currently on IV heparin. Heart rate in the 90s. plan From cardiology's perspective, to discontinue the IV Lasix and start the patient on oral diuretics today. He continues to be on IV heparin, we will check to see regarding coverage for one of the newer anticoagulants. Echocardiogram with Doppler study was performed which revealed an ejection fraction of 35-40%. DNP note has been reviewed, I agree with a documented findings and plan of care. Patient was seen and examined.
[2017-07-22 16:54] LABS: Glucose,Whole Blood 117 mg/dL (75-99)
[2017-07-22] MEDS: FUROSEMIDE 40 MG TAB PO SCH (17:29)
[2017-07-22] MEDS: METOPROLOL TARTRATE 25 MG TAB PO SCH ×2 (17:29→20:07)
[2017-07-22] MEDS: ACETAMINOPHEN TAB 325 MG TAB PO PRN (20:09)
[2017-07-22 21:08] LABS: Glucose,Whole Blood 113 mg/dL (75-99)
[2017-07-23] MEDS: INSULIN ASPART 100 UNIT/ML 1 ML 10 ML VIAL SQ SCH ×5 (00:01→20:59)
[2017-07-23] MEDS: cefTRIAXone IN SWFI 1,000 MG/10 ML SYRINGE IVP SCH ×2 (00:01→20:43)
[2017-07-23 06:12] LABS: Glucose,Whole Blood 87 mg/dL (75-99)
[2017-07-23 06:33] LABS: Basophils % (A) 0 %; Eosinophils % (A) 0 %; HCT 38.6 % (39.0-53.0); HGB 11.8 gm/dL (13.0-17.5); Hypochromasia Slight; Lymphocytes # (A) 0.5 k/uL (1.0-4.8); Lymphocytes % (A) 4 %; MCH 30.6 pg (25.0-35.0); MCHC 30.6 g/dL (31.0-37.0); MCV 100.2 fL (80.0-100.0); Monocytes % (A) 8 %; Neutrophils # (A) 11.6 k/uL (1.3-7.7); Neutrophils % (A) 88 %; Platelet Count 170 k/uL (150-450); RBC 3.85 m/uL (4.30-5.90); RDW 13.4 % (11.5-15.5); WBC 13.2 k/uL (3.8-10.6)
[2017-07-23] MEDS: PANTOPRAZOLE 40 MG TABLET PO SCH (06:43)
[2017-07-23] MEDS: LEVOTHYROXINE 112 MCG TAB PO SCH (06:43)
[2017-07-23 06:55] LABS: Potassium 4.6 mmol/L (3.5-5.1)
[2017-07-23 06:57] LABS: Calcium 8.2 mg/dL (8.4-10.2)
[2017-07-23] MEDS: IPRATROPIUM-ALBUTEROL 3 ML NEB INHALATION SCH ×4 (09:21→21:12)
[2017-07-23] MEDS: ASPIRIN 81 MG PO SCH (09:58)
[2017-07-23] MEDS: ATORVASTATIN 10 MG TAB PO SCH (09:58)
[2017-07-23] MEDS: SENNOSIDES-DOCUSATE SODIUM 1 EACH TAB PO SCH ×2 (09:58→20:43)
[2017-07-23] MEDS: FUROSEMIDE 40 MG TAB PO SCH ×2 (09:58→17:24)
[2017-07-23] MEDS: TAMSULOSIN 0.4 MG CAP.ER.24H PO SCH (09:59)
[2017-07-23] MEDS: hydrALAZINE HCL 50 MG TAB PO SCH (09:59)
[2017-07-23] MEDS: METOPROLOL TARTRATE 25 MG TAB PO SCH ×2 (09:59→20:43)
[2017-07-23] MEDS: DOCUSATE 100 MG CAP PO SCH ×2 (09:59→20:43)
[2017-07-23 11:40] LABS: Glucose,Whole Blood 102 mg/dL (75-99)
[2017-07-23] MEDS: THIAMINE 100 MG TAB PO SCH (12:45)
[2017-07-23] MEDS: APIXABAN 2.5 MG TABLET PO SCH ×2 (12:45→20:43)
--- NOTE | 2017-07-23 16:07 | P.PN ---
Subjective Progress Note Date: 07/23/17 This is a 81-year-old gentleman with history of atrial fibrillation, CHF, chronic renal disease being followed by Dr. Ray, was transferred to this hospital because of complaints of increasing shortness of breath. Patient has been having cough with sputum production and flulike symptoms several days prior to this transfer. Patient did not complain of any chest pain. His proBNP was more than 21,000. An echocardiogram done the in 2014 showed an ejection fraction of 55%. Would not have any recent ones. Patient was treated with IV Lasix. Patient is feeling better. A chest x-ray showed possible infiltrate and possible CHF. He does have significant pedal edema. We'll continue current medical therapy. Is scheduled to have an echocardiogram done tomorrow. 07/21/2017 Patient seen and examined this morning, continues to be on IV Lasix, weight is down 2 kg today. Echocardiogram with Doppler study was performed, which reveals an ejection fraction of 35-40%.mild to moderate mitral regurgitation, moderate tricuspid regurgitation. White blood cell count 17.1, hemoglobin 12.9, BUN 57, creatinine 2.0. 07/22/2017 Patient seen and examined this morning, stable overall. Continues to be on IV heparin. His heart rate is stable. We will check to see if the patient has coverage for one of the newer anticoagulants. IV Lasix was discontinued and patient was initiated on oral diuretics. Creatinine today is 2.3 up from 2.0 yesterday, 1.4 from admission. 07/23/2017 Patient seen and examined this morning, quite eager to be discharged home today. He is currently on oral diuretics. Patient was also approved for Eliquis, we will discontinue the IV heparin and initiate the Eliquis. He may be able to be discharged home from cardiology's perspective, we'll make a follow -up appointment post discharge. Objective - Vital Signs Vital signs: Vital Signs Temp 97.8 F 07/23/17 04:00 Pulse 90 07/23/17 12:11 Resp 20 07/23/17 12:00 BP 110/66 07/23/17 08:00 Pulse Ox 97 07/23/17 08:00 Intake & Output 07/22/17 07/23/17 07/23/17 18:59 06:59 18:59 Intake Total 416 480 Output Total 950 400 300 Balance -534 -400 180 Weight 99.8 kg 99 kg Intake: Oral 416 480 Output: Urine 950 400 300 Other: Voiding Method Urinal Urinal Urinal Diaper Diaper Diaper # Voids 1 2 2 - Exam PHYSICAL EXAMINATION: HEENT: [Head is atraumatic, normocephalic. Pupils equal, round. Neck is supple. There is no elevated jugular venous pressure.] HEART EXAMINATION: [Heart S1, S2 systolic murmur is heard. No murmur or gallop heard.] CHEST EXAMINATION:[ Lungs reveal crackles rales to bilateral bases. No chest wall tenderness is noted on palpation or with deep breathing.] ABDOMEN: [ Soft, nontender. Bowel sounds are heard. No organomegaly noted]. EXTREMITIES:[ 2+ peripheral pulses with no evidence of peripheral edema and no calf tenderness noted]. NEUROLOGIC [patient is awake, alert and oriented -3.] . - Labs CBC & Chem 7: 07/23/17 06:10 07/23/17 06:10 Labs: Abnormal Lab Results - Last 24 Hours (Table) 07/22/17 07/22/17 07/23/17 Range/Units 16:45 21:07 06:10 WBC 13.2 H (3.8-10.6) k/uL RBC 3.85 L (4.30-5.90) m/uL Hgb 11.8 L (13.0-17.5) gm/dL Hct 38.6 L (39.0-53.0) % MCV 100.2 H (80.0-100.0) fL MCHC 30.6 L (31.0-37.0) g/dL Neutrophils # 11.6 H (1.3-7.7) k/uL Lymphocytes # 0.5 L (1.0-4.8) k/uL BUN (9-20) mg/dL Creatinine (0.66-1.25) mg/dL POC Glucose (mg/dL) 117 H 113 H (75-99) mg/dL Calcium (8.4-10.2) mg/dL 07/23/17 07/23/17 Range/Units 06:10 11:37 WBC (3.8-10.6) k/uL RBC (4.30-5.90) m/uL Hgb (13.0-17.5) gm/dL Hct (39.0-53.0) % MCV (80.0-100.0) fL MCHC (31.0-37.0) g/dL Neutrophils # (1.3-7.7) k/uL Lymphocytes # (1.0-4.8) k/uL BUN 83 H* (9-20) mg/dL Creatinine 2.52 H (0.66-1.25) mg/dL POC Glucose (mg/dL) 102 H (75-99) mg/dL Calcium 8.2 L (8.4-10.2) mg/dL Assessment and Plan Plan: Assessment and plan #1 systolic congestive heart failure acute on chronic #2 acute on chronic kidney disease #3 chronic persistent atrial fibrillation, currently on IV heparin. Heart rate in the 90s. plan From cardiology's perspective, we will discontinue the IV heparin and start the patient on Eliquis. Continue current medications. Patient may be able to be discharged home from cardiology's perspective. Follow-up appointment will be made in the office post discharge. DNP note has been reviewed, I agree with a documented findings and plan of care. Patient was seen and examined.
[2017-07-23 16:46] LABS: Glucose,Whole Blood 109 mg/dL (75-99)
[2017-07-23] MEDS: ACETAMINOPHEN TAB 325 MG TAB PO PRN (17:24)
--- NOTE | 2017-07-23 18:38 | P.PN ---
Subjective Progress Note Date: 07/22/17 Progress note being dictated for Dr. Gates. Interval history: This is an 81-year-old gentleman admitted with acute CHF exacerbation and COPD exacerbation. Maintained on heparin and Cardizem drips. Telemetry reporting atrial flutter, heart rates ranging from 80s to 160s. Diuresing well on Lasix IV push with 24-hour I&O reflecting a negative fluid balance. Worsening renal function. Echo suboptimal, reporting severe concentric left ventricular hypertrophy, moderate global hypokinesis of the LV, moderate impaired LV function, EF between 35-40%, severely dilated LA, moderate tricuspid regurgitation, [id number] mitral regurgitation, mild pulmonary hypertension, hold, generalized pericardial effusion. Denies chest pain, palpitations. Afebrile. WBC 17.1. Objective - Vital Signs Vital signs: Vital Signs Temp 97.8 F 07/23/17 04:00 Pulse 85 07/23/17 09:31 Resp 20 07/23/17 08:00 BP 110/66 07/23/17 08:00 Pulse Ox 97 07/23/17 08:00 Intake & Output 07/22/17 07/23/17 07/23/17 18:59 06:59 18:59 Intake Total 416 240 Output Total 950 400 Balance -534 -400 240 Weight 99.8 kg 99 kg Intake: Oral 416 240 Output: Urine 950 400 Other: Voiding Method Urinal Urinal Diaper Diaper # Voids 1 2 2 - Exam PHYSICAL EXAM: VITAL SIGNS: [Temperature 97.7, pulse 82,RR 19, blood pressure 118/61, O2 sat 92 % on 2 lNC] GENERAL: Sitting up at side of bed, no acute distress HEENT: Conjunctivae normal. eyes normal. NECK: No JVD. No thyroid enlargement. No LNs CARDIOVASCULAR: S1, S2 muffled. Positive systolic murmur, no rub, no gallop RESPIRATION: Breath sounds diminished in the bases. Bibasilar crackles. ABDOMEN: Soft, nontender . No guarding. no masses palpable.Bowel sounds heard. LEGS: trace edema. no swelling PSYCHIATRY: Alert and oriented -3, mood and affect normal. NERVOUS SYSTEM: Cranial N 2-12 grossly normal. Moves all 4 limbs. Diffuse weakness No focal deficits. Skin: no ulcer no rash Joints: No active swelling. No inflammation. Lymphatic system. No LN neck axilla or groin. - Labs CBC & Chem 7: 07/23/17 06:10 07/23/17 06:10 Labs: Abnormal Lab Results - Last 24 Hours (Table) 07/22/17 07/22/17 07/22/17 Range/Units 11:59 16:45 21:07 WBC (3.8-10.6) k/uL RBC (4.30-5.90) m/uL Hgb (13.0-17.5) gm/dL Hct (39.0-53.0) % MCV (80.0-100.0) fL MCHC (31.0-37.0) g/dL Neutrophils # (1.3-7.7) k/uL Lymphocytes # (1.0-4.8) k/uL BUN (9-20) mg/dL Creatinine (0.66-1.25) mg/dL POC Glucose (mg/dL) 123 H 117 H 113 H (75-99) mg/dL Calcium (8.4-10.2) mg/dL 07/23/17 07/23/17 Range/Units 06:10 06:10 WBC 13.2 H (3.8-10.6) k/uL RBC 3.85 L (4.30-5.90) m/uL Hgb 11.8 L (13.0-17.5) gm/dL Hct 38.6 L (39.0-53.0) % MCV 100.2 H (80.0-100.0) fL MCHC 30.6 L (31.0-37.0) g/dL Neutrophils # 11.6 H (1.3-7.7) k/uL Lymphocytes # 0.5 L (1.0-4.8) k/uL BUN 83 H* (9-20) mg/dL Creatinine 2.52 H (0.66-1.25) mg/dL POC Glucose (mg/dL) (75-99) mg/dL Calcium 8.2 L (8.4-10.2) mg/dL Assessment and Plan Assessment: 1. Acute on chronic CHF exacerbation,, systolic dysfunction, EF 35-40% 2. Possible Acute COPD exacerbation with acute bronchitis 3. Sinus tachycardia and right bundle branch block, possibly AV block 4. Multiple PACs 5. Chronic persistent Atrial fibrillation, uncontrolled 6. CKD, stage III 7. Remote history of nicotine dependence. Plan: Continue on current medication regime ,monitoring and symptomatic treatment. Case management verifying outpatient Rx coverage for Eliquis. Maintained on Lasix IV push for another 24 hours as per cardiology. Close monitoring of renal function, electrolytes, with repeat labs ordered in a.m. if renal function continues to worsen, will consult nephrology. The impression and plan of care has been dictated as directed. : I performed a history and examination of this patient, discussed the same with the dictator. I agree with the dictator's note ,documented as a scribe. Any additional findings or plans will be noted.
--- NOTE | 2017-07-23 18:51 | P.PN ---
Subjective Progress Note Date: 07/23/17 Progress note being dictated for Dr. Gates. Interval history: This is an 81-year-old gentleman admitted with acute CHF exacerbation and COPD exacerbation. Maintained on heparin and Cardizem drips. Telemetry reporting atrial flutter, heart rates ranging from 80s to 160s. Diuresing well on Lasix IV push with 24-hour I&O reflecting a negative fluid balance. Worsening renal function. Echo suboptimal, reporting severe concentric left ventricular hypertrophy, moderate global hypokinesis of the LV, moderate impaired LV function, EF between 35-40%, severely dilated LA, moderate tricuspid regurgitation, [id number] mitral regurgitation, mild pulmonary hypertension, hold, generalized pericardial effusion. Denies chest pain, palpitations. Afebrile. WBC 17.1. 07/23/17 oxygen requirements worsened, requiring 4 L to maintain O2 sats of 95% , yesterday maintained low 90s on 2 L. diuresing well on oral Lasix with 24- hour I&O reflecting a negative fluid balance. Renal function continues to worsen. WBC improving, afebrile. Telemetry atrial flutter, heart rate currently in the 120s. Denies chest pain, palpitations. Objective - Vital Signs Vital signs: Vital Signs Temp 97.8 F 07/23/17 04:00 Pulse 83 07/23/17 16:45 Resp 20 07/23/17 16:00 BP 145/84 07/23/17 16:00 Pulse Ox 99 07/23/17 16:00 Intake & Output 07/22/17 07/23/17 07/23/17 18:59 06:59 18:59 Intake Total 416 720 Output Total 950 400 300 Balance -534 -400 420 Weight 99.8 kg 99 kg Intake: Oral 416 720 Output: Urine 950 400 300 Other: Voiding Method Urinal Urinal Urinal Diaper Diaper Diaper # Voids 1 2 2 - Exam PHYSICAL EXAM: VITAL SIGNS: As above GENERAL: Sitting up at side of bed, increased respiratory effort HEENT: Conjunctivae normal. eyes normal. NECK: No JVD. No thyroid enlargement. No LNs CARDIOVASCULAR: S1, S2 muffled. Positive systolic murmur, no rub, no gallop RESPIRATION: Breath sounds diminished in the bases. Bibasilar crackles. Occasional expiratory wheeze ABDOMEN: Soft, nontender . No guarding. no masses palpable.Bowel sounds heard. LEGS: trace edema. no swelling PSYCHIATRY: Alert and oriented -3, mood and affect normal. NERVOUS SYSTEM: Cranial N 2-12 grossly normal. Moves all 4 limbs. Diffuse weakness No focal deficits. Skin: no ulcer no rash Joints: No active swelling. No inflammation. Lymphatic system. No LN neck axilla or groin. - Labs CBC & Chem 7: 07/23/17 06:10 07/23/17 06:10 Labs: Abnormal Lab Results - Last 24 Hours (Table) 07/22/17 07/23/17 07/23/17 Range/Units 21:07 06:10 06:10 WBC 13.2 H (3.8-10.6) k/uL RBC 3.85 L (4.30-5.90) m/uL Hgb 11.8 L (13.0-17.5) gm/dL Hct 38.6 L (39.0-53.0) % MCV 100.2 H (80.0-100.0) fL MCHC 30.6 L (31.0-37.0) g/dL Neutrophils # 11.6 H (1.3-7.7) k/uL Lymphocytes # 0.5 L (1.0-4.8) k/uL BUN 83 H* (9-20) mg/dL Creatinine 2.52 H (0.66-1.25) mg/dL POC Glucose (mg/dL) 113 H (75-99) mg/dL Calcium 8.2 L (8.4-10.2) mg/dL 07/23/17 07/23/17 Range/Units 11:37 16:44 WBC (3.8-10.6) k/uL RBC (4.30-5.90) m/uL Hgb (13.0-17.5) gm/dL Hct (39.0-53.0) % MCV (80.0-100.0) fL MCHC (31.0-37.0) g/dL Neutrophils # (1.3-7.7) k/uL Lymphocytes # (1.0-4.8) k/uL BUN (9-20) mg/dL Creatinine (0.66-1.25) mg/dL POC Glucose (mg/dL) 102 H 109 H (75-99) mg/dL Calcium (8.4-10.2) mg/dL Assessment and Plan Assessment: 1. Acute on chronic CHF exacerbation,, systolic dysfunction, EF 35-40% 2. Possible Acute COPD exacerbation with acute bronchitis 3. Sinus tachycardia and right bundle branch block, possibly AV block 4. Multiple PACs 5. Chronic persistent Atrial fibrillation, uncontrolled 6. CKD, stage III 7. Remote history of nicotine dependence. 8. Moderate tricuspid regurg. Plan: Continue on current medication regime , antibiotics, monitoring and symptomatic treatment. Follow-up chest x-ray ordered. Prednisone added to med regime. Nephrology consulted. Approved for outpatient Rx coverage of Eliquis. The impression and plan of care has been dictated as directed. : I performed a history and examination of this patient, discussed the same with the dictator. I agree with the dictator's note ,documented as a scribe. Any additional findings or plans will be noted.
--- NOTE | 2017-07-23 19:46 | XR ---
EXAMINATION TYPE: XR chest 1V DATE OF EXAM: 07/23/2017 COMPARISON: July 19, 2017 HISTORY: Short of breath TECHNIQUE: Single frontal view of the chest is obtained. FINDINGS: There is blunting of right costophrenic angle. There is some infiltrate at the right lung base. There is mild pulmonary congestion. Thoracic aorta is atheromatous. IMPRESSION: There is increasing pleural fluid and infiltrate at the right lung base compared to last exam and consistent with pneumonia and heart failure.
[2017-07-23] MEDS: predniSONE 20 MG TAB PO SCH (20:43)
[2017-07-23 21:00] LABS: Glucose,Whole Blood 128 mg/dL (75-99)
[2017-07-24] MEDS: ACETAMINOPHEN TAB 325 MG TAB PO PRN ×2 (03:23→16:20)
[2017-07-24 05:59] LABS: Glucose,Whole Blood 117 mg/dL (75-99)
[2017-07-24] MEDS: INSULIN ASPART 100 UNIT/ML 1 ML 10 ML VIAL SQ SCH ×4 (06:05→21:45)
[2017-07-24] MEDS: PANTOPRAZOLE 40 MG TABLET PO SCH (06:14)
[2017-07-24] MEDS: LEVOTHYROXINE 112 MCG TAB PO SCH (06:14)
[2017-07-24 06:26] LABS: Basophils % (A) 0 %; Eosinophils % (A) 0 %; HCT 37.7 % (39.0-53.0); HGB 11.7 gm/dL (13.0-17.5); Lymphocytes # (A) 0.3 k/uL (1.0-4.8); Lymphocytes % (A) 3 %; MCH 31.2 pg (25.0-35.0); MCHC 31.1 g/dL (31.0-37.0); MCV 100.3 fL (80.0-100.0); Monocytes # (A) 0.5 k/uL (0-1.0); Monocytes % (A) 4 %; Neutrophils # (A) 9.8 k/uL (1.3-7.7); Neutrophils % (A) 92 %; Platelet Count 159 k/uL (150-450); RBC 3.76 m/uL (4.30-5.90); RDW 13.4 % (11.5-15.5); WBC 10.6 k/uL (3.8-10.6)
[2017-07-24 06:46] LABS: Calcium 8.3 mg/dL (8.4-10.2); Potassium 5.1 mmol/L (3.5-5.1)
[2017-07-24] MEDS: FUROSEMIDE 40 MG TAB PO SCH ×2 (08:20→16:21)
[2017-07-24] MEDS: hydrALAZINE HCL 50 MG TAB PO SCH (08:20)
[2017-07-24] MEDS: TAMSULOSIN 0.4 MG CAP.ER.24H PO SCH (08:20)
[2017-07-24] MEDS: DOCUSATE 100 MG CAP PO SCH ×2 (08:20→21:47)
[2017-07-24] MEDS: SENNOSIDES-DOCUSATE SODIUM 1 EACH TAB PO SCH ×2 (08:20→21:47)
[2017-07-24] MEDS: METOPROLOL TARTRATE 25 MG TAB PO SCH ×2 (08:21→21:47)
[2017-07-24] MEDS: ASPIRIN 81 MG PO SCH (08:21)
[2017-07-24] MEDS: ATORVASTATIN 10 MG TAB PO SCH (08:21)
[2017-07-24] MEDS: APIXABAN 2.5 MG TABLET PO SCH ×2 (08:21→21:51)
[2017-07-24] MEDS: predniSONE 20 MG TAB PO SCH (08:21)
[2017-07-24] MEDS: IPRATROPIUM-ALBUTEROL 3 ML NEB INHALATION SCH ×5 (09:14→20:56)
[2017-07-24 11:42] LABS: Glucose,Whole Blood 99 mg/dL (75-99)
[2017-07-24] MEDS: THIAMINE 100 MG TAB PO SCH (11:50)
--- NOTE | 2017-07-24 13:42 | XR ---
EXAMINATION TYPE: XR chest 1V DATE OF EXAM: 07/24/2017 COMPARISON: 07/23/2017 HISTORY: Shortness of breath TECHNIQUE: Single frontal view of the chest is obtained. FINDINGS: Bilateral lower lobe consolidation and small effusion. Heart enlarged. Atherosclerotic fabian nge aorta. No pneumothorax. No overt failure. IMPRESSION: Bilateral lower lobe infiltrate and small effusion.
--- NOTE | 2017-07-24 15:06 | CONS ---
CONSULTATION DATE OF CONSULTATION: 07/24/2017 REASON FOR CONSULT: Renal failure. HISTORY OF PRESENT ILLNESS: Patient is an 81-year-old male who was admitted to the hospital on 07/19/2017 with complaints off shortness of breath. He has had some cough and worsening lower extremity edema as well. Patient is currently being diuresed. He has received IV Lasix. Lasix is currently p.o. at 40 mg b.i.d. Patient states he follows with a battery tester field out of [place]. His serum creatinine was 1.4 mg/dL. It has gone up to 2.9 now. Blood pressure has been slightly on the lower side with systolic around 105 to 109 mmHg. Patient states he has been voiding and 24 hour urine output documented is 1.3 L. Patient has not received any IV contrast during his admission. He is not on any pressors or nonsteroidal anti-inflammatory agents. PAST MEDICAL HISTORY: Chronic kidney disease for which the patient follows a battery tester field out of [place]. He is not sure if his stage of kidney disease. Patient also has underlying CHF, COPD, cardiomyopathy, EF of 35%-40% with severely dilated left atrium, moderate tricuspid regurgitation, hypertension. PAST SURGICAL HISTORY: Back surgery. SOCIAL HISTORY: Positive for the patient being a previous smoker. MEDICATIONS: Medications at home included Synthroid, Lipitor, Ecotrin, hydralazine and Flomax. ALLERGIES: None. REVIEW OF SYSTEMS: As per HPI. Other systems negative. PHYSICAL EXAMINATION: The patient is currently comfortable. He is short of breath while coughing. He is not in any acute distress. Blood pressure 105/61, heart rate 88 per minute. He is afebrile. Examination of the heart, S1 and S2. Examination of the lungs, bilateral wheezing is heard. No crackles are heard. Abdomen is soft, morbidly obese. Examination of the lower extremities shows chronic skin changes, chronic edema and pigmentation and chronic edema is also noted bilaterally and found to be about 2+. HOSPICE MUSIC THERAPIST exam is grossly intact. Patient is moving all 4 extremities. LABS: Show sodium 139, potassium 5.1, chloride 98, BUN 93, serum creatinine 2.9, hemoglobin 11.7 g/dL, calcium was 8.3. UA is completely clean with no evidence of blood or protein, this was from 07/19/2017. ASSESSMENT: 1. Acute kidney injury, mainly cardiorenal. Currently maintained on oral Lasix. Patient is status post IV fluids. His renal function has worsened over the last couple of days. Blood pressure is on the lower side. He continues to have significant edema and review of his weight shows he has put on quite a bit of weight since admission. He may benefit from using an agent along with IV diuretics with recurrence given the worsening renal failure. Patient also again has significant lower extremity edema due to moderately dilated right and pulmonary hypertension noted on echocardiogram. Patient also has moderate . 1. Chronic obstructive pulmonary disease. 2. Cardiomyopathy, ejection fraction 35%-40%. 3. Congestive heart failure, acute on top of chronic systolic. 4. Atrial fibrillation, maintained on anticoagulation. Rate is controlled. 5. 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 The patient follows with battery tester field out of [place]. PLAN: I will discuss with Cardiology if his volume status has improved over the past few days, then we can continue with oral diuretics. Otherwise, he will need agents along with IV diuretics. Thank you for this consultation. Will continue to follow the patient with you during his hospitalization. MMODL / IJN: [id number] /
--- NOTE | 2017-07-24 15:20 | P.PN ---
Subjective Progress Note Date: 07/24/17 This is a 81-year-old gentleman with history of atrial fibrillation, CHF, chronic renal disease being followed by Dr. Ray, was transferred to this hospital because of complaints of increasing shortness of breath. Patient has been having cough with sputum production and flulike symptoms several days prior to this transfer. Patient did not complain of any chest pain. His proBNP was more than 21,000. An echocardiogram done the in 2014 showed an ejection fraction of 55%. Would not have any recent ones. Patient was treated with IV Lasix. Patient is feeling better. A chest x-ray showed possible infiltrate and possible CHF. He does have significant pedal edema. We'll continue current medical therapy. Is scheduled to have an echocardiogram done tomorrow. 07/21/2017 Patient seen and examined this morning, continues to be on IV Lasix, weight is down 2 kg today. Echocardiogram with Doppler study was performed, which reveals an ejection fraction of 35-40%.mild to moderate mitral regurgitation, moderate tricuspid regurgitation. White blood cell count 17.1, hemoglobin 12.9, BUN 57, creatinine 2.0. 07/22/2017 Patient seen and examined this morning, stable overall. Continues to be on IV heparin. His heart rate is stable. We will check to see if the patient has coverage for one of the newer anticoagulants. IV Lasix was discontinued and patient was initiated on oral diuretics. Creatinine today is 2.3 up from 2.0 yesterday, 1.4 from admission. 07/23/2017 Patient seen and examined this morning, quite eager to be discharged home today. He is currently on oral diuretics. Patient was also approved for Eliquis, we will discontinue the IV heparin and initiate the Eliquis. He may be able to be discharged home from cardiology's perspective, we'll make a follow -up appointment post discharge. 2017 Patient seen and examined this morning, BUN and creatinine continue to rise. Creatinine this morning is 2.9, potassium 5.1. Chest x-ray was again repeated which reveals bilateral lower lobe infiltrate. We will hold the patient's Lasix today, check lytes BUN and creatinine again in the morning. Patient eagerly wants to be discharged home, but because of the rise in creatinine he was advised to stay one more day. Discussed with nephrology as well. Objective - Vital Signs Vital signs: Vital Signs Temp 97.7 F 07/24/17 11:35 Pulse 88 07/24/17 12:55 Resp 20 07/24/17 11:35 BP 105/61 07/24/17 11:35 Pulse Ox 91 L 07/24/17 11:35 Intake & Output 07/23/17 07/24/17 07/24/17 18:59 06:59 18:59 Intake Total 720 236 Output Total 300 600 75 Balance 420 -600 161 Weight 98.6 kg Intake: Oral 720 236 Output: Urine 300 600 75 Other: Voiding Method Urinal Urinal Urinal Diaper Diaper Diaper # Voids 2 2 1 - Exam PHYSICAL EXAMINATION: HEENT: [Head is atraumatic, normocephalic. Pupils equal, round. Neck is supple. There is no elevated jugular venous pressure.] HEART EXAMINATION: [Heart S1, S2 systolic murmur is heard. No murmur or gallop heard.] CHEST EXAMINATION:[ Lungs reveal crackles rales to bilateral bases. No chest wall tenderness is noted on palpation or with deep breathing.] ABDOMEN: [ Soft, nontender. Bowel sounds are heard. No organomegaly noted]. EXTREMITIES:[ 2+ peripheral pulses with evidence of peripheral edema and no calf tenderness noted]. NEUROLOGIC [patient is awake, alert and oriented -3.] . - Labs CBC & Chem 7: 07/24/17 05:54 07/24/17 05:54 Labs: Abnormal Lab Results - Last 24 Hours (Table) 07/23/17 07/23/17 07/24/17 Range/Units 16:44 20:58 05:54 RBC 3.76 L (4.30-5.90) m/uL Hgb 11.7 L (13.0-17.5) gm/dL Hct 37.7 L (39.0-53.0) % MCV 100.3 H (80.0-100.0) fL Neutrophils # 9.8 H (1.3-7.7) k/uL Lymphocytes # 0.3 L (1.0-4.8) k/uL BUN (9-20) mg/dL Creatinine (0.66-1.25) mg/dL Glucose (74-99) mg/dL POC Glucose (mg/dL) 109 H 128 H (75-99) mg/dL Calcium (8.4-10.2) mg/dL 07/24/17 07/24/17 Range/Units 05:54 05:56 RBC (4.30-5.90) m/uL Hgb (13.0-17.5) gm/dL Hct (39.0-53.0) % MCV (80.0-100.0) fL Neutrophils # (1.3-7.7) k/uL Lymphocytes # (1.0-4.8) k/uL BUN 93 H* (9-20) mg/dL Creatinine 2.91 H (0.66-1.25) mg/dL Glucose 132 H (74-99) mg/dL POC Glucose (mg/dL) 117 H (75-99) mg/dL Calcium 8.3 L (8.4-10.2) mg/dL Assessment and Plan Plan: Assessment and plan #1 systolic congestive heart failure acute on chronic #2 acute on chronic kidney disease #3 chronic persistent atrial fibrillation, currently on IV heparin. Heart rate in the 90s. plan Chest x-ray was repeated which reveals bilateral lower lobe infiltrate, no evidence of congestive cardiac failure. We will hold the Lasix today, check repeat lytes BUN and creatinine in the morning. DNP note has been reviewed, I agree with a documented findings and plan of care. Patient was seen and examined.
[2017-07-24 16:51] LABS: Glucose,Whole Blood 119 mg/dL (75-99)
--- NOTE | 2017-07-24 16:52 | P.PN ---
Subjective Progress Note Date: 07/24/17 Progress note being dictated for Dr. Gates. Interval history: This is an 81-year-old gentleman admitted with acute CHF exacerbation and COPD exacerbation. Maintained on heparin and Cardizem drips. Telemetry reporting atrial flutter, heart rates ranging from 80s to 160s. Diuresing well on Lasix IV push with 24-hour I&O reflecting a negative fluid balance. Worsening renal function. Echo suboptimal, reporting severe concentric left ventricular hypertrophy, moderate global hypokinesis of the LV, moderate impaired LV function, EF between 35-40%, severely dilated LA, moderate tricuspid regurgitation, [id number] mitral regurgitation, mild pulmonary hypertension, hold, generalized pericardial effusion. Denies chest pain, palpitations. Afebrile. WBC 17.1. 07/23/17 oxygen requirements worsened, requiring 4 L to maintain O2 sats of 95% , yesterday maintained low 90s on 2 L. diuresing well on oral Lasix with 24- hour I&O reflecting a negative fluid balance. Renal function continues to worsen. WBC improving, afebrile. Telemetry atrial flutter, heart rate currently in the 120s. Denies chest pain, palpitations. 07/24/2017 borderline hypotensive today, systolic pressures in the low 100s, hydralazine discontinued. Diuresing well on oral Lasix with 24-hour I&O reflecting a negative fluid balance. Renal function continues to worsen at 2.91.Lasix held today. Evaluated by nephrology with recommendations noted. Maintaining O2 sats of 96% on 3 L. chest x-ray yesterday afternoon reporting increasing pleural fluid and infiltrate right lung base consistent with pneumonia and heart failure. Chest x-ray today reporting bilateral infiltrates .Telemetry reporting atrial fibrillation, heart rate currently in the 80s with highest rate during the night noted at 150. Objective - Vital Signs Vital signs: Vital Signs Temp 97.7 F 07/24/17 11:35 Pulse 88 07/24/17 12:55 Resp 20 07/24/17 11:35 BP 105/61 07/24/17 11:35 Pulse Ox 91 L 07/24/17 11:35 Intake & Output 07/23/17 07/24/17 07/24/17 18:59 06:59 18:59 Intake Total 720 236 Output Total 300 600 75 Balance 420 -600 161 Weight 98.6 kg Intake: Oral 720 236 Output: Urine 300 600 75 Other: Voiding Method Urinal Urinal Urinal Diaper Diaper Diaper # Voids 2 2 1 - Exam PHYSICAL EXAM: VITAL SIGNS: As above GENERAL: Sitting up at side of bed, increased respiratory effort HEENT: Conjunctivae normal. eyes normal. NECK: No JVD. No thyroid enlargement. No LNs CARDIOVASCULAR: S1, S2 muffled. Positive systolic murmur, no rub, no gallop RESPIRATION: Breath sounds diminished in the bases. Bibasilar crackles. ABDOMEN: Soft, nontender . No guarding. no masses palpable.Bowel sounds heard. LEGS: positive edema. PSYCHIATRY: Alert and oriented -3, mood and affect normal. NERVOUS SYSTEM: Cranial N 2-12 grossly normal. Moves all 4 limbs. Diffuse weakness No focal deficits. - Labs CBC & Chem 7: 07/24/17 05:54 07/24/17 05:54 Labs: Abnormal Lab Results - Last 24 Hours (Table) 07/23/17 07/23/17 07/24/17 Range/Units 16:44 20:58 05:54 RBC 3.76 L (4.30-5.90) m/uL Hgb 11.7 L (13.0-17.5) gm/dL Hct 37.7 L (39.0-53.0) % MCV 100.3 H (80.0-100.0) fL Neutrophils # 9.8 H (1.3-7.7) k/uL Lymphocytes # 0.3 L (1.0-4.8) k/uL BUN (9-20) mg/dL Creatinine (0.66-1.25) mg/dL Glucose (74-99) mg/dL POC Glucose (mg/dL) 109 H 128 H (75-99) mg/dL Calcium (8.4-10.2) mg/dL 07/24/17 07/24/17 Range/Units 05:54 05:56 RBC (4.30-5.90) m/uL Hgb (13.0-17.5) gm/dL Hct (39.0-53.0) % MCV (80.0-100.0) fL Neutrophils # (1.3-7.7) k/uL Lymphocytes # (1.0-4.8) k/uL BUN 93 H* (9-20) mg/dL Creatinine 2.91 H (0.66-1.25) mg/dL Glucose 132 H (74-99) mg/dL POC Glucose (mg/dL) 117 H (75-99) mg/dL Calcium 8.3 L (8.4-10.2) mg/dL Assessment and Plan Assessment: 1. Acute on chronic CHF exacerbation,, systolic dysfunction, EF 35-40% 2. Possible Acute COPD exacerbation with acute bronchitis, possible bilateral pneumonia 3. Sinus tachycardia and right bundle branch block, possibly AV block 4. Multiple PACs 5. Chronic persistent Atrial fibrillation, uncontrolled 6. Acute on chronic renal failure, stage III to IV, possibly cardiorenal 7. Remote history of nicotine dependence. 8. Moderate tricuspid regurg. Plan: Continue on current medication regime , antibiotics, monitoring and symptomatic treatment. Aggressive pulmonary toileting. Levaquin, renal dose added to med regime. Close monitoring of renal function, electrolytes with repeat labs ordered for a.m. Mildly hypotensive Hydralazine discontinued, close monitoring of blood pressure. The impression and plan of care has been dictated as directed. : I performed a history and examination of this patient, discussed the same with the dictator. I agree with the dictator's note ,documented as a scribe. Any additional findings or plans will be noted.
[2017-07-24] MEDS ORDERED: LEVOFLOXACIN 250MG-D5W PMX 250 MG in DEXTROSE/WATER 1 50ML.BAG IVPB SCH (17:00)
[2017-07-24 21:10] LABS: Glucose,Whole Blood 123 mg/dL (75-99)
[2017-07-24] MEDS: cefTRIAXone IN SWFI 1,000 MG/10 ML SYRINGE IVP SCH (21:51)
[2017-07-25] MEDS: ACETAMINOPHEN TAB 325 MG TAB PO PRN (01:59)
[2017-07-25 05:49] LABS: Basophils % (A) 0 %; Eosinophils % (A) 0 %; HCT 37.3 % (39.0-53.0); HGB 11.6 gm/dL (13.0-17.5); Lymphocytes # (A) 0.3 k/uL (1.0-4.8); Lymphocytes % (A) 3 %; MCH 30.9 pg (25.0-35.0); MCHC 31.1 g/dL (31.0-37.0); MCV 99.3 fL (80.0-100.0); Mean Platelet Volume 8.6; Monocytes # (A) 0.9 k/uL (0-1.0); Monocytes % (A) 7 %; Neutrophils # (A) 10.9 k/uL (1.3-7.7); Neutrophils % (A) 89 %; Platelet Count 167 k/uL (150-450); RBC 3.75 m/uL (4.30-5.90); RDW 13.4 % (11.5-15.5); WBC 12.2 k/uL (3.8-10.6)
[2017-07-25 05:50] LABS: Glucose,Whole Blood 114 mg/dL (75-99)
[2017-07-25 06:01] LABS: Calcium 8.6 mg/dL (8.4-10.2); Potassium 5.1 mmol/L (3.5-5.1)
[2017-07-25] MEDS: INSULIN ASPART 100 UNIT/ML 1 ML 10 ML VIAL SQ SCH ×2 (06:17→16:06)
[2017-07-25] MEDS: PANTOPRAZOLE 40 MG TABLET PO SCH (06:18)
[2017-07-25] MEDS: LEVOTHYROXINE 112 MCG TAB PO SCH (06:18)
[2017-07-25 06:22] VITALS: RESP 18
[2017-07-25] MEDS: DOCUSATE 100 MG CAP PO SCH (08:04)
[2017-07-25] MEDS: METOPROLOL TARTRATE 25 MG TAB PO SCH ×2 (08:04→16:46)
[2017-07-25] MEDS: predniSONE 20 MG TAB PO SCH (08:04)
[2017-07-25] MEDS: SENNOSIDES-DOCUSATE SODIUM 1 EACH TAB PO SCH (08:04)
[2017-07-25] MEDS: TAMSULOSIN 0.4 MG CAP.ER.24H PO SCH (08:04)
[2017-07-25] MEDS: THIAMINE 100 MG TAB PO SCH (08:04)
[2017-07-25] MEDS: FUROSEMIDE 40 MG TAB PO SCH ×2 (08:04→16:05)
[2017-07-25] MEDS: APIXABAN 2.5 MG TABLET PO SCH (08:04)
[2017-07-25] MEDS: ATORVASTATIN 10 MG TAB PO SCH (08:04)
[2017-07-25] MEDS: ASPIRIN 81 MG PO SCH (08:04)
[2017-07-25] MEDS: IPRATROPIUM-ALBUTEROL 3 ML NEB INHALATION SCH ×2 (08:29→11:53)
[2017-07-25 12:02] LABS: Glucose,Whole Blood 118 mg/dL (75-99)
[2017-07-25 12:07] VITALS: BP 133/74; PULSE 77; TEMP 97.5
--- NOTE | 2017-07-25 14:13 | P.PN ---
Subjective Progress Note Date: 07/25/17 Principal diagnosis: Acute exacerbation of chronic systolic congestive heart failure This is a very pleasant 81-year-old gentleman who follows with Dr. Ray as his primary care physician. He has a history of hypothyroidism, benign prosthetic hypertrophy, hyperlipidemia, atrial fibrillation, congestive heart failure, remote history of 50+ year smoking history. He has not been seen by a electrical estimator in the past. No home oxygen or inhalers. He was admitted back on 07/19/2017 for an CHF exacerbation. His initial chest x-ray revealed basilar atelectasis/pleural effusions. Yesterday's chest x-ray shows some improvement. There is also noted emphysematous changes. The patient has been slow to progress. He has been followed by cardiology. He's been on diuretics, bronchodilators, steroids and antibiotics. We're consulted today for continued shortness of breath and hypoxic respiratory failure. Presently he is seen on the selective care unit. He is sitting up in a chair at the bedside. He is awake and alert in no acute distress. He denies any worsening shortness of breath, cough or congestion. He's been afebrile. He is maintaining O2 saturations in the low 90s on room air. Hemodynamically stable. White count 12.2. Hemoglobin 11.6. BUN 99, creatinine 3.16. Nephrology is following. Objective - Vital Signs Vital signs: Vital Signs Temp 97.5 F L 07/25/17 12:04 Pulse 84 07/25/17 12:06 Resp 18 07/25/17 12:04 BP 133/74 07/25/17 12:04 Pulse Ox 91 L 07/25/17 12:04 Intake & Output 07/24/17 07/25/17 07/25/17 18:59 06:59 18:59 Intake Total 536 Output Total 175 500 Balance 361 -500 Weight 96.9 kg Intake: Oral 536 Output: Urine 175 500 Other: Voiding Method Urinal Urinal Urinal Diaper Diaper Diaper # Voids 1 2 - Exam GENERAL EXAM: Alert, comfortable in no apparent distress. HEAD: Normocephalic. EYES: Normal reaction of pupils, equal size. NOSE: Clear with pink turbinates. THROAT: No erythema or exudates. NECK: No masses, no JVD. CHEST: No chest wall deformity. LUNGS: Equal air entry with faint crackles in the bilateral posterior bases. Diminished. CVS: S1 and S2 normal with no audible murmur, regular rhythm. ABDOMEN: No hepatosplenomegaly, normal bowel sounds, no guarding or rigidity. SPINE: No scoliosis or deformity SKIN: No rashes CENTRAL NERVOUS SYSTEM: No focal deficits, tone is normal in all 4 extremities. EXTREMITIES: There is 2-3+ peripheral edema. No clubbing, no cyanosis. Peripheral pulses are intact. - Labs CBC & Chem 7: 07/25/17 05:31 07/25/17 05:31 Labs: Abnormal Lab Results - Last 24 Hours (Table) 07/24/17 07/24/17 07/25/17 Range/Units 16:50 21:06 05:31 WBC 12.2 H (3.8-10.6) k/uL RBC 3.75 L (4.30-5.90) m/uL Hgb 11.6 L (13.0-17.5) gm/dL Hct 37.3 L (39.0-53.0) % Neutrophils # 10.9 H (1.3-7.7) k/uL Lymphocytes # 0.3 L (1.0-4.8) k/uL Chloride (98-107) mmol/L BUN (9-20) mg/dL Creatinine (0.66-1.25) mg/dL Glucose (74-99) mg/dL POC Glucose (mg/dL) 119 H 123 H (75-99) mg/dL 07/25/17 07/25/17 07/25/17 Range/Units 05:31 05:47 11:26 WBC (3.8-10.6) k/uL RBC (4.30-5.90) m/uL Hgb (13.0-17.5) gm/dL Hct (39.0-53.0) % Neutrophils # (1.3-7.7) k/uL Lymphocytes # (1.0-4.8) k/uL Chloride 96 L (98-107) mmol/L BUN 99 H* (9-20) mg/dL Creatinine 3.16 H (0.66-1.25) mg/dL Glucose 110 H (74-99) mg/dL POC Glucose (mg/dL) 114 H 118 H (75-99) mg/dL Assessment and Plan Assessment: Impression: #1 Acute exacerbation of chronic systolic congestive heart failure. Impaired left ventricular systolic function with ejection fraction 35-40%. #2 Acute hypoxic respiratory failure secondary to above. #3 50+ year pack per day smoking history however quit many years ago. Suspect some component of chronic obstructive pulmonary disease. #4 Acute on chronic renal failure, cardiorenal. 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 #5 Atrial fibrillation, anticoagulated with Eliquis. #6 History of TIA. #7 Hypothyroidism. #8 Degenerative joint disease. #9 Poor overall functional performance based on the above-mentioned multiple comorbidities. Plan: The patient was seen and evaluated by Dr. Coleman. His chest x-ray and labs were reviewed. He does have some component of chronic emphysema untreated in the outpatient setting. Would recommend continue with DuoNeb inhalations, Pulmicort inhalations, prednisone taper. Complete his course of antibiotics. He would benefit from a follow-up in our office in 1-2 weeks' time. We could perform full pulmonary function testing to evaluate the severity of his suspected COPD and make further recommendations regarding maintenance medications. Continue with diuretics as per cardiology and nephrology. The patient is quite adamant about going home. He remains quite weak and is ambulating with a walker. Most likely benefit from inpatient rehabilitation. Discharge planning is in place. I, the cosigning physician, performed a history & physical examination of the patient. Lungs sounds have faint crackles in the posterior bases. Diminished.. Maintaining good O2 saturations in the 90s on room air. I discussed the assessment and plan of care with my nurse practitioner, Ena Soni. I attest to the above note as dictated by her. Time with Patient: Greater than 30
--- NOTE | 2017-07-25 14:54 | P.PN ---
Subjective Progress Note Date: 07/25/17 This is a 81-year-old gentleman with history of atrial fibrillation, CHF, chronic renal disease being followed by Dr. Ray, was transferred to this hospital because of complaints of increasing shortness of breath. Patient has been having cough with sputum production and flulike symptoms several days prior to this transfer. Patient did not complain of any chest pain. His proBNP was more than 21,000. An echocardiogram done the in 2014 showed an ejection fraction of 55%. Would not have any recent ones. Patient was treated with IV Lasix. Patient is feeling better. A chest x-ray showed possible infiltrate and possible CHF. echocardiogram this admission shows moderate global hypokinesis of the LV with a moderately impaired LV systolic function with an ejection fraction between 35-40%. The patient's BUN and creatinine continue to rise. He is been switched over to by mouth Lasix. Objective - Vital Signs Vital signs: Vital Signs Temp 97.5 F L 07/25/17 12:04 Pulse 84 07/25/17 12:06 Resp 18 07/25/17 12:04 BP 133/74 07/25/17 12:04 Pulse Ox 91 L 07/25/17 12:04 Intake & Output 07/24/17 07/25/17 07/25/17 18:59 06:59 18:59 Intake Total 536 Output Total 175 500 Balance 361 -500 Weight 96.9 kg Intake: Oral 536 Output: Urine 175 500 Other: Voiding Method Urinal Urinal Urinal Diaper Diaper Diaper # Voids 1 2 - Labs CBC & Chem 7: 07/25/17 05:31 07/25/17 05:31 Labs: Abnormal Lab Results - Last 24 Hours (Table) 07/24/17 07/24/17 07/25/17 Range/Units 16:50 21:06 05:31 WBC 12.2 H (3.8-10.6) k/uL RBC 3.75 L (4.30-5.90) m/uL Hgb 11.6 L (13.0-17.5) gm/dL Hct 37.3 L (39.0-53.0) % Neutrophils # 10.9 H (1.3-7.7) k/uL Lymphocytes # 0.3 L (1.0-4.8) k/uL Chloride (98-107) mmol/L BUN (9-20) mg/dL Creatinine (0.66-1.25) mg/dL Glucose (74-99) mg/dL POC Glucose (mg/dL) 119 H 123 H (75-99) mg/dL 07/25/17 07/25/17 07/25/17 Range/Units 05:31 05:47 11:26 WBC (3.8-10.6) k/uL RBC (4.30-5.90) m/uL Hgb (13.0-17.5) gm/dL Hct (39.0-53.0) % Neutrophils # (1.3-7.7) k/uL Lymphocytes # (1.0-4.8) k/uL Chloride 96 L (98-107) mmol/L BUN 99 H* (9-20) mg/dL Creatinine 3.16 H (0.66-1.25) mg/dL Glucose 110 H (74-99) mg/dL POC Glucose (mg/dL) 114 H 118 H (75-99) mg/dL Assessment and Plan Assessment: #1 acute on chronic systolic congestive heart failure #2 acute on chronic kidney disease, follows with a dispenser operator in [place] #3 chronic persistent atrial fibrillation Plan: from cardiology's perspective, medications were reviewed and we will continue the same. Continue lasix 40mg po BID. Continue to monitor lytes, BUN and creatinine. TEST PILOT note has been reviewed, I agree with a documented findings and plan of care. Patient was seen and examined.
--- NOTE | 2017-07-25 15:37 | PN ---
PROGRESS NOTE Patient is seen for followup for acute kidney injury, which is mainly cardiorenal and associated with recent diuresis. The patient is significantly improved since his admission as per discussion with Cardiology. Therefore we continued with his current dose of oral Lasix. Serum creatinine is not significantly increased compared to yesterday where it went up to 3.1 from 2.9. The patient has had good urine output. He states he is breathing better and wants to go home. EXAMINATION: Blood pressure 133/74, heart rate 84 per minute. He is afebrile. Examination of the heart: S1, S2. Examination lungs: Bilateral breath sounds are heard. Wheezing is heard occasionally. Abdomen is soft, morbidly obese. Examination of lower extremity shows chronic skin changes, chronic edema 2+ bilaterally. MANAGER STERILE PROCESSING exam shows patient moving all 4 extremities. No focal deficits are noted. LAB: Show sodium 138, potassium 5.1, BUN 99, serum creatinine 3.16, hemoglobin 11.6 g/dL. ASSESSMENT: 1. Acute kidney injury, cardiorenal and associated with recent diuresis. Lasix was recently changed to p.o. and we can continue the current dose. The patient can be discharged from nephrology standpoint with plans for close followup as outpatient with his primary hospitality intern out of [place]. Patient should also have labs done in about 3-4 days post discharge. 2. Chronic kidney disease, NKF stage IIIB to IV. Baseline creatinine is not known, but previous labs from 2015 shows a creatinine of 1.3 and 1.5 mg/dL. 3. Severe cardiomyopathy with ejection fraction 35-40% with dilated left atrium. 4. Chronic obstructive pulmonary disease. 5. Congestive heart failure, acute on top of chronic, currently improved. 6. Atrial fibrillation, controlled ventricular response maintained on anticoagulation. PLAN: Patient is stable for discharge. Follow up labs in 2-3 days post discharge and follow up with primary hospitality intern in 4-5 days. MMODL / IJN: [id number] /
[2017-07-25] MEDS ORDERED: LEVOFLOXACIN 250 MG TAB PO SCH (18:00)
--- NOTE | 2017-07-25 18:02 | P.DS ---
Providers Date of admission: 07/19/17 14:59 Expected date of discharge: 07/25/17 Attending physician: Martha Gates Consults: 07/19/17 14:59 Consult Physician Routine Consulting Provider: Cy Renteria Consult Reason/Comments: chf, a fib Do you want consulting provider notified?: Yes 07/23/17 18:22 Consult Physician Routine Consulting Provider: Cecille Lei Consult Reason/Comments: renal failure Do you want consulting provider notified?: Yes 07/25/17 09:15 Consult Physician Routine Consulting Provider: Meño Coleman Consult Reason/Comments: hypoxia, chf,pneumonia Do you want consulting provider notified?: Yes Primary care physician: Alvaro Ray Hospital Course: Final Diagnoses: 1. Acute on chronic CHF exacerbation,, systolic dysfunction, EF 35-40% 2. Possible Acute COPD exacerbation with acute bronchitis, possible bilateral pneumonia 3. Sinus tachycardia and right bundle branch block, possibly AV block 4. Multiple PACs 5. Chronic persistent Atrial fibrillation, anticoagulated with Eliquis 6. 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 Remote history of nicotine dependence. 8. Moderate tricuspid regurg. 9. Acute hypoxic respiratory failure secondary to acute CHF, COPD exacerbation , and possible pneumonia Hospital course:This is an 81-year-old gentleman admitted with acute CHF exacerbation and COPD exacerbation. Maintained on heparin and Cardizem drips. Telemetry reporting atrial flutter, heart rates ranging from 80s to 160s. Evaluated by cardiology, nephrology and pulmonary. Diuresed on Lasix IV push, developed worsening in renal function, converted to oral Lasix; decreasing significant bilateral leg edema. Echo suboptimal, reporting severe concentric left ventricular hypertrophy, moderate global hypokinesis of the LV, moderate impaired LV function, EF between 35-40%, severely dilated LA, moderate tricuspid regurgitation, [id number] mitral regurgitation, mild pulmonary hypertension, small generalized pericardial effusion. Significant clinical improvement. Patient does not want to stay another night, requesting discharge. Cleared by pulmonary, cardiology and nephrology for discharge. Patient's O2 sat 87% on room air after ambulation and will be sent home with 2 L nasal cannula O2 and nebulized bronchodilators. Discharge diuretics discussed with Dr. Lei, nephrology;Hold lasix dose tonight. resume Lasix Bid tomorrow. Further adjustment of diuretics as per PCP or Menagerie Caretaker by Friday or Friday. Notified concerned home care patient will need lab work drawn on July 28. Patient is being discharged home in a stable condition with guarded prognosis. PHYSICAL EXAM: GENERAL:VSS, Sitting up at side of bed, no acute distress, A & O 3.CARDIOVASCULAR: S1, S2 muffled. Positive systolic murmur, no rub, no gallop RESPIRATION: Breath sounds diminished in the bases. Bibasilar crackles.ABDOMEN : Soft, nontender . No guarding. no masses palpable.Bowel sounds heard. LEGS: positive edema.NERVOUS SYSTEM:No focal deficits. The impression and plan of care has been dictated as directed. : I performed a history and examination of this patient, discussed the same with the dictator. I agree with the dictator's note ,documented as a scribe. Any additional findings or plans will be noted. Time taken: 35 minutes Patient Condition at Discharge: Stable Plan - Discharge Summary Discharge Rx Participant: No New Discharge Prescriptions: New Docusate [Colace] 100 mg PO BID cap Levofloxacin [Levaquin] 250 mg PO Q24H #5 tab Metoprolol Tartrate [Lopressor] 25 mg PO BID #60 tab Pantoprazole [Protonix] 40 mg PO AC-BRKFST #15 tablet. predniSONE 10 mg PO DIRECTED #30 tab Sennosides-Docusate Sodium [Senokot-S] 2 each PO BID tab Ipratropium-Albuterol Nebulize [Duoneb 0.5 mg-3 mg/3 ml Soln] 3 ml INHALATION RT-QID #120 ampul.neb Acetaminophen Tab [Tylenol] 650 mg PO Q6HR PRN tab PRN Reason: Fever And/ Or Pain Aspirin 81 mg PO DAILY #30 chew Furosemide [Lasix] 40 mg PO BID@0900,1600 #60 tab Apixaban [Eliquis] 2.5 mg PO BID #60 tab Continue Tamsulosin HCl 0.4 mg PO DAILY Levothyroxine Sodium [Synthroid] 112 mcg PO DAILY Atorvastatin [Lipitor] 10 mg PO DAILY Thiamine [Vitamin B-1] 100 mg PO DAILY@1200 #30 tab Discontinued Aspirin EC [Ecotrin] 325 mg PO DAILY #30 tablet. Discharge Medication List Levothyroxine Sodium [Synthroid] 112 mcg PO DAILY 02/11/15 [History] Tamsulosin HCl 0.4 mg PO DAILY 02/11/15 [History] Atorvastatin [Lipitor] 10 mg PO DAILY 02/12/15 [History] Thiamine [Vitamin B-1] 100 mg PO DAILY@1200 #30 tab 02/14/15 [Rx] Acetaminophen Tab [Tylenol] 650 mg PO Q6HR PRN tab 07/25/17 [Rx] Apixaban [Eliquis] 2.5 mg PO BID #60 tab 07/25/17 [Rx] Aspirin 81 mg PO DAILY #30 chew 07/25/17 [Rx] Docusate [Colace] 100 mg PO BID cap 07/25/17 [Rx] Furosemide [Lasix] 40 mg PO BID@0900,1600 #60 tab 07/25/17 [Rx] Ipratropium-Albuterol Nebulize [Duoneb 0.5 mg-3 mg/3 ml Soln] 3 ml INHALATION RT -QID #120 ampul.neb 07/25/17 [Rx] Levofloxacin [Levaquin] 250 mg PO Q24H #5 tab 07/25/17 [Rx] Metoprolol Tartrate [Lopressor] 25 mg PO BID #60 tab 07/25/17 [Rx] Pantoprazole [Protonix] 40 mg PO AC-BRKFST #15 tablet. 07/25/17 [Rx] Sennosides-Docusate Sodium [Senokot-S] 2 each PO BID tab 07/25/17 [Rx] predniSONE 10 mg PO DIRECTED #30 tab 07/25/17 [Rx] Follow up Appointment(s)/Referral(s): [facility] C[facility]aker, Pt's own [facility] [Other] - 1 Week (Dr. Osuna [phone] ext. [phone] Please call on Friday morning, office reopens at 9:00 AM. Schedule a hospital follow up and lab work for close monitoring of kidney function.) Meño Coleman MD [STAFF PHYSICIAN] - 08/06/17 1:00 pm Alvaro Ray MD [Primary Care Provider] - 3 Days (Left message with office to call back with follow up appointment.) Kenneth Padilla MD [STAFF PHYSICIAN] - 08/05/17 2:15 pm Ambulatory/Diagnostic Orders: Complete Blood Count w/diff [LAB.AMB] Time Frame: 3 Days, Location: Determined By Patient Patient Instructions/Handouts: Heart Failure (DC), Chronic Kidney Disease (DC) Activity/Diet/Wound Care/Special Instructions: Hold lasix dose tonight. resume Lasix Bid tomorrow. Further adjustment of diuretics as per PCP or [facility]ie Caretaker by Friday or Friday as rec. by Nephrology. [facility] [phone]. Need to draw labwork on Friday, July. pts Eliquis copay is $43 Discharge Disposition: HOME WITH HOME HEALTH SERVICES
--- NOTE | 2017-07-29 15:23 | CDI ---
Last Revision, May 2017 Typical flutter eunice Documentation Clarification Form Date: 07/29/2017 3:16:00 PM From: Aurora Gui Devi Burns, Electric Truck Crane Operator between 8:30 am & 5 pm Jesus Admit Date: 07/19/2017 2:59:00 PM Patient Name: Ender Potter Visit Number: [id number] Discharge Date: 07/25/17 ATTENTION: The Clinical Documentation Specialists (CDI) and [facility] Coding Staff appreciate your assistance in clarifying documentation. Please respond to the clarification below the line at the bottom and electronically sign. The CDI & [facility] Coding staff will review the response and follow-up if needed. Please note: Queries are made part of the Legal Health Record. If you have any questions, please contact the author of this message via ITS. Dr. Kenneth Padilla Atrial Flutter is documented in the 07/23 & 07/24 PN and discharge summary. History/Risk factors: CHF Telemetry: atrial flutter, heart rate ranging from 80's to 160s. Treatment: Maintain on Heparin and Cardizem drips In your professional opinion, in order to capture the severity of condition; can you please clarify the type of atrial flutter if known? Typical/Type I Atypical/Type II Other, please specify Unable to determine Please document addendum in your progress notes in order to capture severity of illness and risk of mortality. Include clinical findings that support your diagnosis. MTDD
== END 2017-07-25 17:00 | disposition home health service (06) | DRG 291 ==
LOC: EC 14:23 → 6SEL 14:59
PROVIDERS: ADMIT Hospitalist; ATTEND Hospitalist
DX: I13.0 Hypertensive heart and chronic kidney disease with heart failure and stage 1 through stage 4 chronic kidney disease, or unspecified chronic kidney disease (principal); I50.23 Acute on chronic systolic (congestive) heart failure; J96.01 Acute respiratory failure with hypoxia; J18.9 Pneumonia, unspecified organism; I27.20 Pulmonary hypertension, unspecified; I31.3 Pericardial effusion (noninflammatory); N18.4 Chronic kidney disease, stage 4 (severe); N17.9 Acute kidney failure, unspecified; I48.1 Persistent atrial fibrillation; I08.1 Rheumatic disorders of both mitral and tricuspid valves; E66.01 Morbid (severe) obesity due to excess calories; I42.9 Cardiomyopathy, unspecified; J44.1 Chronic obstructive pulmonary disease with (acute) exacerbation; J44.0 Chronic obstructive pulmonary disease with (acute) lower respiratory infection; I48.92 Unspecified atrial flutter; J98.11 Atelectasis; I45.10 Unspecified right bundle-branch block; N40.0 Benign prostatic hyperplasia without lower urinary tract symptoms; E78.5 Hyperlipidemia, unspecified; E03.9 Hypothyroidism, unspecified; I44.0 Atrioventricular block, first degree; M19.91 Primary osteoarthritis, unspecified site; Z68.29 Body mass index [BMI] 29.0-29.9, adult; Z79.82 Long term (current) use of aspirin; Z79.899 Other long term (current) drug therapy; Z87.891 Personal history of nicotine dependence; Z86.73 Personal history of transient ischemic attack (TIA), and cerebral infarction without residual deficits
CPT/HCPCS: 36415; 71045; 80048; 80053; 81003; 82550; 82553; 83036; 83880; 84439; 84443; 84481; 84484; 85025; 85610; 85730; 87502; 93005; 93306; 94640; 94760; 96365; 96368; 96376; 99285

== ENCOUNTER 2017-07-26 20:49 | Inpatient (IN) | payer MEDICARE, BC ==
[2017-07-26] MEDS ORDERED: NITROGLYCERIN SL TABS 0.4 MG TAB SUBLINGUAL PRN (22:01)
--- NOTE | 2017-07-26 22:01 | ED ---
General Adult HPI - General Chief complaint: Urogenital Stated complaint: SOB Time Seen by Provider: 07/26/17 20:51 Source: EMS, RN notes reviewed Mode of arrival: EMS Limitations: physical limitation - History of Present Illness Initial comments: 81-year-old male presents as a transfer from [facility]. He was brought in due to having difficulty in urination. He was found of urinary retention and a Coyle was placed. They also state generalized weakness as well. Patient lab work was performed. They were concerned due to multiple abnormal findings so they transferred patient here to be admitted. Patient himself has no complaints. He states he does not know why he is here. He does have a Coyle placed that does appear to be draining.Patient denies any recent fever, chills, shortness of breath, chest pain, back pain, abdominal pain, nausea vomiting, numbness or tingling, dysuria or hematuria, constipation or diarrhea, headaches or visual changes, or any other current symptoms. - Related Data Home Medications Medication Instructions Recorded Confirmed Levothyroxine Sodium [Synthroid] 112 mcg PO DAILY 02/11/15 07/19/17 Tamsulosin HCl 0.4 mg PO DAILY 02/11/15 07/19/17 Atorvastatin [Lipitor] 10 mg PO DAILY 02/12/15 07/19/17 Previous Rx's Medication Instructions Recorded Thiamine [Vitamin B-1] 100 mg PO DAILY@1200 #30 tab 02/14/15 Acetaminophen Tab [Tylenol] 650 mg PO Q6HR PRN tab 07/25/17 Apixaban [Eliquis] 2.5 mg PO BID #60 tab 07/25/17 Aspirin 81 mg PO DAILY #30 chew 07/25/17 Docusate [Colace] 100 mg PO BID cap 07/25/17 Furosemide [Lasix] 40 mg PO BID@0900,1600 #60 tab 07/25/17 Ipratropium-Albuterol Nebulize 3 ml INHALATION RT-QID #120 07/25/17 [Duoneb 0.5 mg-3 mg/3 ml Soln] ampul.neb Levofloxacin [Levaquin] 250 mg PO Q24H #5 tab 07/25/17 Metoprolol Tartrate [Lopressor] 25 mg PO BID #60 tab 07/25/17 Pantoprazole [Protonix] 40 mg PO AC-BRKFST #15 tablet. 07/25/17 Sennosides-Docusate Sodium 2 each PO BID tab 07/25/17 [Senokot-S] predniSONE 10 mg PO DIRECTED #30 tab 07/25/17 Allergies Allergy/AdvReac Type Severity Reaction Status Date / Time No Known Allergies Allergy Verified 07/19/17 15:00 Review of Systems ROS Statement: Those systems with pertinent positive or pertinent negative responses have been documented in the HPI. ROS Other: All systems not noted in ROS Statement are negative. Past Medical History Past Medical History: Atrial Fibrillation, Heart Failure, Renal Disease History of Any Multi-Drug Resistant Organisms: None Reported Past Surgical History: Back Surgery Past Anesthesia/Blood Transfusion Reactions: No Reported Reaction Past Psychological History: No Psychological Hx Reported Smoking Status: Former smoker Past Alcohol Use History: None Reported Past Drug Use History: None Reported - Past Family History Mother Family Medical History: No Reported History General Exam Limitations: physical limitation General appearance: alert, in no apparent distress ENT exam: Present: normal exam, mucous membranes moist Neck exam: Present: normal inspection. Absent: tenderness, meningismus, lymphadenopathy Respiratory exam: Present: normal lung sounds bilaterally. Absent: respiratory distress, wheezes, rales, rhonchi, stridor Cardiovascular Exam: Present: regular rate, normal rhythm, normal heart sounds. Absent: systolic murmur, diastolic murmur, rubs, gallop, clicks Neurological exam: Present: alert Psychiatric exam: Present: normal affect, normal mood Skin exam: Present: warm, dry, intact, normal color. Absent: rash Course Vital Signs 07/26/17 20:50 Temperature 97.3 F L Pulse Rate 82 Respiratory 17 Rate Blood Pressure 101/51 O2 Sat by Pulse 95 Oximetry Medical Decision Making - Medical Decision Making 81-year-old male presents to the transfer from [facility] who presented for weakness and urinary retention. The catheter was placed. The drain the urine. Patient is found have acute on chronic kidney injury. He is found to have some suspicion for CHF and possible pneumonia on chest x-ray. They're concerned for possible he A. fib are new 50 with an elevated troponin as well. This time we will admit the patient. We did discuss this with Dr. Gates who is in agreement with this plan. Disposition Clinical Impression: CHF exacerbation, [id number] kidney injury, Elevated troponin, History of atrial fibrillation, Pneumonia of both lungs due to infectious organism Disposition: ADMITTED IP TO THIS HOSP Condition: Stable Referrals: Alvaro Ray MD [Primary Care Provider] - 1-2 days Decision Date: 07/26/17 Decision Time: 22:01
[2017-07-26] MEDS ORDERED: SODIUM CHLORIDE 0.9% 1,000 ML IV STA (22:05)
[2017-07-26] MEDS ORDERED: HEPARIN SOD,PORK IN 0.45% NACL 25,000 UNIT in 0.45% NACL 1 500ML.BAG IV SCH (22:15)
[2017-07-26 23:53] LABS: Creatine Kinase MB 3.5 ng/mL (0.0-2.4)
[2017-07-26 23:54] LABS: Troponin I 0.132 ng/mL (0.000-0.034)
[2017-07-27] MEDS ORDERED: IPRATROPIUM-ALBUTEROL 3 ML NEB INHALATION SCH
[2017-07-27] MEDS: PIPERACILLIN-TAZOBACTAM 3.375 GM in DEXTROSE/WATER 1 50ML.BAG IVPB SCH ×3 (00:45→16:20)
[2017-07-27] MEDS ORDERED: IPRATROPIUM-ALBUTEROL 3 ML NEB INHALATION PRN (01:19)
[2017-07-27 05:48] LABS: Basophils % (A) 0 %; Eosinophils % (A) 0 %; HCT 32.8 % (39.0-53.0); HGB 10.2 gm/dL (13.0-17.5); Lymphocytes # (A) 0.3 k/uL (1.0-4.8); Lymphocytes % (A) 2 %; MCH 30.8 pg (25.0-35.0); MCHC 31.2 g/dL (31.0-37.0); MCV 98.6 fL (80.0-100.0); Mean Platelet Volume 8.7; Monocytes # (A) 0.9 k/uL (0-1.0); Monocytes % (A) 8 %; Neutrophils # (A) 10.6 k/uL (1.3-7.7); Neutrophils % (A) 89 %; Platelet Count 164 k/uL (150-450); RBC 3.33 m/uL (4.30-5.90); RDW 13.2 % (11.5-15.5)
[2017-07-27 06:01] LABS: Calcium 8.2 mg/dL (8.4-10.2); Magnesium 2.4 mg/dL (1.6-2.3); Potassium 4.2 mmol/L (3.5-5.1)
[2017-07-27 06:21] LABS: Creatine Kinase MB 3.3 ng/mL (0.0-2.4); Troponin I 0.145 ng/mL (0.000-0.034)
[2017-07-27] MEDS: IPRATROPIUM-ALBUTEROL 3 ML NEB INHALATION SCH ×4 (07:03→19:06)
[2017-07-27] MEDS ORDERED: FUROSEMIDE 10 MG/ML 2 ML VIAL IV SCH (09:00)
[2017-07-27] MEDS: ASPIRIN 325 MG TAB PO SCH (10:05)
--- NOTE | 2017-07-27 13:02 | XR ---
EXAMINATION TYPE: XR chest 1V DATE OF EXAM: 07/27/2017 HISTORY: chf. REFERENCE: Previous study dated 07/24/2017. FINDINGS: The heart is mildly enlarged. There is vascular congestion and mild interstitial change. Th ere are small, bilateral effusions. IMPRESSION: CHANGES CONSISTENT WITH MILD HEART FAILURE.
[2017-07-27] MEDS ORDERED: ACETAMINOPHEN TAB 325 MG TAB PO PRN (16:19)
--- NOTE | 2017-07-27 16:37 | CONS ---
CONSULTATION REASON FOR CONSULT: Renal failure. HISTORY OF PRESENT ILLNESS: The patient is a 81-year-old white male with history of cardiomyopathy, ejection fraction of 35-40%. 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 He was admitted to the hospital recently and just discharged on 07/25/2017 after being hospitalized for fluid overload and a acute exacerbation of CHF. The patient has a serum creatinine peaked from 1.4 mg/dL to 3.16. At that time, diuretics were decreased and patient was discharged home. His admission creatinine 2 days later is 2.83, and the main reason for admission was urine retention. Currently, patient has an indwelling Coyle catheter. He has had good urine output. He denies any other significant complaints. PAST MEDICAL HISTORY: CKD stage stage IIIB to IV being followed by supervisor front out of [place]. CHF, cardiomyopathy, ejection fraction 35 to 40%, severely dilated left atrium. Moderate tricuspid regurg. Hypertension. PAST SURGICAL HISTORY: Back surgery. SOCIAL HISTORY: The patient is a former smoker. No history of drug abuse or alcohol abuse. HOME MEDICATIONS: Includes Synthroid, Lipitor, Ecotrin, hydralazine, Flomax, and Lasix. ALLERGIES: None. REVIEW OF SYSTEMS: As per HPI. Other systems negative. EXAMINATION: Patient is comfortable. He is awake, not in any acute distress. Blood pressure is 115/53, heart rate 95 per minute. He is afebrile. Examination of the heart: S1, S2. Examination lungs: Bilateral breath sounds are heard. Decreased breath sounds at bases. Abdomen is soft, nontender. Exam of lower extremity shows chronic skin changes, chronic edema, currently slightly improved as compared to last admission. ACCOUNT DEVELOPER exam is grossly intact. Patient moving all 4 extremities. LAB: Show sodium 140, potassium 4.2, chloride 101, CO2 is 30, BUN 97, serum creatinine 2.83, hemoglobin 10.2 g/dL. Troponin was 0.13 and increased to 0.145, hemoglobin 10.2 g/dL. ASSESSMENT: 1. Acute kidney injury from recent diuresis and cardiorenal syndrome. Serum creatinine had peaked at 3.1 two days ago. It is now down to 2.83. I will continue with oral Lasix for now. 2. Severe cardiomyopathy, ejection fraction 35-40% with severe tricuspid regurgitation. 3. Urine retention, currently on Flomax with indwelling Coyle catheter. 4. Chronic obstructive pulmonary disease. 5. Atrial fibrillation, maintained on anticoagulation with controlled ventricular response. 6. CKD stage III with a creatinine of about 1.4 mg/dL, possibly at baseline. The patient follows with supervisor front out of [place]. PLAN: Continue oral Lasix for now. Discontinue all IV fluids. Repeat labs in a.m. Thank you for this consultation. We will continue to follow the patient with you during his hospitalization. BRANDIE / ISAAKN: [id number] /
[2017-07-27] MEDS ORDERED: guaiFENesin 600 MG TABLET.ER PO PRN (16:39)
[2017-07-27] MEDS ORDERED: BISMUTH SUBSALICYLATE 4,192 MG/240 ML BOTTLE PO PRN (16:40)
--- NOTE | 2017-07-27 16:55 | HP ---
HISTORY AND PHYSICAL DATE OF SERVICE: 07/27/2017 CHIEF COMPLAINTS: Urinary difficulties and as well as shortness of breath. HISTORY OF PRESENT ILLNESS: This 81-year-old gentleman with a past medical history of multiple medical problems including history of atrial fibrillation, history of CHF, was recently admitted to [facility] with CHF acute exacerbation and COPD exacerbation. Patient went home. Patient followed with Dr. Ray in the [place] area. The patient had some difficulty in urination. Patient went [facility] and patient also had some cough and the patient complains of some generalized tiredness and weakness. Coyle catheter was inserted and because of the multiple abnormalities in the labs the patient transferred to [facility] and admitted for evaluation and treatment. There is no history of fever, rigors. No headache, loss of consciousness, chest pain, palpitation. Troponins are indeterminate. PAST MEDICAL HISTORY: Atrial ablation, CHF, COPD. MEDICATIONS: Prior to admission include home medications are: 1. Prednisone taper. 2. Vitamin B1 100 mg daily. 3. Flomax 0.4 daily. 4. Senokot-S 2 tablets p.o. b.i.d. 5. Protonix 40 mg with breakfast. 6. Lopressor 25 mg p.o. b.i.d. 7. Synthroid 100 mcg p.o. daily. 8. Levaquin 250 mg p.o. q.24 hours. 9. DuoNeb q.i.d. 10.Lasix 40 mg b.i.d. at 9 and 6 o'clock. 11.Colace 100 mg b.i.d. 12.Lipitor 10 mg p.o. daily. 13.Aspirin 81 mg daily. 14.Eliquis 2.5 mg b.i.d. 15.Tylenol 650 q.6 p.r.n. ALLERGIES: None. FAMILY HISTORY: No history of heart disease or strokes in family. SOCIAL HISTORY: No history of alcohol intake. Previous history of smoking. REVIEW OF SYSTEMS: ENT: Diminished vision and diminished hearing. CARDIOVASCULAR: As mentioned. RESPIRATORY: As mentioned earlier. GI: As mentioned. : As mentioned. NERVOUS SYSTEM: As mentioned earlier. ALLERGY/IMMUNOLOGY: No history of asthma. MUSCULOSKELETAL: As mentioned. HEMATOLOGY: No history anemia. ENDOCRINE: Hypothyroidism. CONSTITUTIONAL: As mentioned earlier. DERMATOLOGY: Negative. RHEUMATOLOGY: Negative. PSYCHIATRY: As mentioned earlier. PHYSICAL EXAMINATION: Alert and oriented x3. Pulse is 70, blood pressure 115/58, respiration 18, temperature 97.5, pulse ox 97% on 3 L. HEENT: Conjunctivae normal. Oral mucosa moist. Neck is no jugular venous distention. No carotid bruit. No lymph node enlargement. CARDIOVASCULAR: S1, S2. No S3, no S4. RESPIRATORY: Breath sounds diminished in the bases. A few scattered rhonchi and expiratory wheezing and crackles. ABDOMEN: Soft, nontender. No mass palpable. LEGS: No edema, no swelling. NERVOUS SYSTEM: Higher functions as mentioned. Moves all 4 limbs. No focal motor sensory deficits. LYMPHATICS: No lymphadenopathy in the neck, axillae, groin. SKIN: No ulcer, rash or bleeding. LABS: WBC 12, hemoglobin 10.2, otherwise CK-MB is 3.3. Troponin 0.145. ASSESSMENT: 1. Acute urinary retention on Coyle catheter. 2. Troponin 0.145 indeterminate, rule out acute non ST elevation myocardial infarction. 3. Chronic kidney disease stage 3. 4. Increased WBC. 5. Anemia. 6. History of recent shortness of breath with possibly secondary to chronic obstructive pulmonary disease acute exacerbation as well as congestive heart failure acute exacerbation with acute on chronic systolic dysfunction, ejection fraction 35-40%. 7. History of recent bilateral pneumonia. 8. Multiple PACs. 9. Chronic persistent atrial fibrillation. 10.Acute on chronic renal failure stage III to IV. 11.Remote history of nicotine dependence. 12.Moderate tricuspid regurgitation. 13.Gait dysfunction. 14.NO CODE, NO CPR, NO VENT. RECOMMENDATIONS AND DISCUSSION: In this 81-year-old gentleman who presented with multiple complex medical issues, will monitor the patient closely. Continue the current management and symptomatic treatment. As this time I recommend resume the home medication, bronchodilators, and diuretics. A Coyle catheter has been inserted. Otherwise I would also recommend PT, OT evaluation for possible ECF rehab. Repeat labs will be arranged. Cardiology will be consulted for the troponins which were elevated at 0.145. We will monitor the renal function very closely. Nephrology Dr. Lei's who saw the patient, saw the patient during the recent hospitalization. Overall prognosis guarded because of multiple complex medical issues. Further recommendations to follow. MMODL / IJN: [id number] /
[2017-07-27] MEDS: ATORVASTATIN 10 MG TAB PO SCH (17:28)
[2017-07-27] MEDS: FUROSEMIDE 40 MG TAB PO SCH (17:28)
[2017-07-27] MEDS: LEVOFLOXACIN 250 MG TAB PO SCH (17:41)
[2017-07-27] MEDS: TAMSULOSIN 0.4 MG CAP.ER.24H PO SCH (18:37)
[2017-07-27] MEDS: METOPROLOL TARTRATE 25 MG TAB PO SCH (19:49)
[2017-07-27] MEDS: SENNOSIDES-DOCUSATE SODIUM 1 EACH TAB PO SCH (19:49)
[2017-07-27] MEDS: APIXABAN 2.5 MG TABLET PO SCH (19:49)
[2017-07-27] MEDS: DOCUSATE 100 MG CAP PO SCH (19:49)
--- NOTE | 2017-07-27 23:21 | CONS ---
CONSULTATION This is a gentleman who was discharged from the hospital on the . His medical problems include chronic renal failure, atrial fibrillation, hypertension, and also hyperlipidemia. He was discharged but went to the emergency room at [place] and then was transferred to this emergency room. He has multiple medical problems in the form of atrial fibrillation, CHF exacerbation, CKD has well. Apparently he had some difficulty with urination, went to [facility], had cough, complained of generalized weakness, complained of some chest discomfort. A Coyle catheter was inserted and he was transferred here. At the time of my evaluation, he indicates to me that he wants to be a NO CODE. He does not want any aggressive measures. He came in for urinary retention and there was also some elevation of troponin noted. Troponin profile may suggest a small non-ST elevation [place], but with renal failure, it is difficult to say. The patient, however, has no chest pain. He is not in any distress. He is actually comfortable. PAST MEDICAL HISTORY: 1. Atrial fibrillation. 2. Hypertension. 3. Hyperlipidemia. 4. Chronic renal failure. 5. Hypothyroidism. MEDICATIONS: At home include Synthroid, Flomax, Lipitor, thiamine, aspirin, Eliquis 2.5 mg b.i.d., Lasix 40 mg b.i.d., Levaquin 250 mg daily, metoprolol tartrate 25 mg daily. ALLERGIES: Allergies are none. EKG revealed atrial fibrillation, controlled ventricular rate, right bundle branch block pattern with nonspecific ST-T changes. EXAMINATION: On examination blood pressure is 114/70, pulse rate is 70 irregular. HEENT unremarkable. Fundus was not examined by me. NECK: Supple. There is JVD of 1 cm. No carotid bruit. Heart exam reveals S1, S2 with a short systolic murmur. Irregular rhythm. Lungs reveal diminished air entry. Abdomen is soft, nontender. Lower extremities reveal diminished pulses. Central nervous system is normal without focal deficits but generalized weakness. LABORATORY DATA: Suggests a creatinine of 2.8. Troponin is 0.1 and 0.1. IMPRESSION: 1. Chronic atrial fibrillation. 2. Urinary retention status post Coyle catheter. 3. History of hypertension. 4. Chronic kidney disease with a creatinine range of 2.8. RECOMMENDATION: I am recommending that we resume the beta erinn for rate control and apixaban as well as the oral Lasix at 40 mg b.i.d. Cardiac-jeffesr, no intervention and we will convert to conservative management and await input from Nephrology. Thank you very much for the consult. BRANDIE / SAMSON: [id number] /
[2017-07-28] MEDS: PIPERACILLIN-TAZOBACTAM 3.375 GM in DEXTROSE/WATER 1 50ML.BAG IVPB SCH ×3 (00:30→17:55)
[2017-07-28 06:00] LABS: Basophils % (A) 0 %; Eosinophils # (A) 0.1 k/uL (0-0.7); Eosinophils % (A) 1 %; HGB 10.1 gm/dL (13.0-17.5); Hypochromasia Slight; Lymphocytes # (A) 0.4 k/uL (1.0-4.8); Lymphocytes % (A) 4 %; MCHC 30.5 g/dL (31.0-37.0); MCV 101.8 fL (80.0-100.0); Macrocytosis Slight; Mean Platelet Volume 7.9; Monocytes # (A) 0.7 k/uL (0-1.0); Monocytes % (A) 6 %; Neutrophils # (A) 10.4 k/uL (1.3-7.7); Neutrophils % (A) 89 %; Platelet Count 179 k/uL (150-450); RBC 3.24 m/uL (4.30-5.90); RDW 13.3 % (11.5-15.5); WBC 11.7 k/uL (3.8-10.6)
[2017-07-28 06:15] LABS: Calcium 7.9 mg/dL (8.4-10.2); Potassium 3.9 mmol/L (3.5-5.1)
[2017-07-28] MEDS: LEVOTHYROXINE 112 MCG TAB PO SCH (06:37)
[2017-07-28] MEDS: PANTOPRAZOLE 40 MG TABLET PO SCH (06:37)
[2017-07-28] MEDS: ASPIRIN 325 MG TAB PO SCH (08:11)
[2017-07-28] MEDS: IPRATROPIUM-ALBUTEROL 3 ML NEB INHALATION SCH ×4 (08:11→21:49)
[2017-07-28] MEDS: ATORVASTATIN 10 MG TAB PO SCH (08:12)
[2017-07-28] MEDS: DOCUSATE 100 MG CAP PO SCH ×3 (08:12→20:13)
[2017-07-28] MEDS: APIXABAN 2.5 MG TABLET PO SCH ×2 (08:12→20:05)
[2017-07-28] MEDS: predniSONE 10 MG TAB PO SCH (08:13)
[2017-07-28] MEDS: METOPROLOL TARTRATE 25 MG TAB PO SCH (08:13)
[2017-07-28] MEDS: SENNOSIDES-DOCUSATE SODIUM 1 EACH TAB PO SCH ×3 (08:13→20:14)
[2017-07-28] MEDS: FUROSEMIDE 40 MG TAB PO SCH ×2 (08:13→17:49)
[2017-07-28] MEDS: THIAMINE 100 MG TAB PO SCH (08:14)
--- NOTE | 2017-07-28 08:17 | P.PN ---
Subjective Patient is seen in follow-up for acute kidney injury on chronic kidney disease. He is currently resting in bed. Oral intake is good. Denies chest pain or shortness of breath. He is nonoliguric. He has a Coyle catheter in place due to urinary retention and urine output is documented as 5.3 L in the last 24 hours. Currently maintained on Lasix 40 mg orally twice daily. He does have systolic CHF with ejection fraction of 35-40% with moderate tricuspid regurgitation. Urinalysis is benign. Also has history of chronic kidney disease stage III with baseline creatinine near 1.4 secondary to nephrosclerosis and cardiorenal syndrome. Vital signs are stable. General: The patient appeared well nourished and normally developed. HEENT: Head exam is unremarkable. Neck is without jugular venous distension. LUNGS: Lungs are clear to auscultation and percussion. Breath sounds decreased. HEART: Rate and Rhythm are regular. First and second heart sounds normal. No murmurs, rubs or gallops. ABDOMEN: Abdominal exam reveals normal bowel sounds. Non-tender and non- distended. No evidence of peritonitis. EXTREMITITES: 1+ edema. Objective - Vital Signs Vital signs: Vital Signs Temp 97.8 F 07/28/17 00:00 Pulse 93 07/28/17 04:00 Resp 16 07/28/17 04:00 BP 102/54 07/28/17 04:00 Pulse Ox 95 07/28/17 04:00 Intake & Output 07/27/17 07/28/17 07/28/17 18:59 06:59 18:59 Intake Total 898 Output Total 2200 3150 Balance -1302 -3150 Weight 96 kg Intake: IV 180 Heparin Sod,Pork in 0.45% 180 NaCl 25,000 unit In 0.45 % NaCl 1 500ml.bag @ 10.4 UNITS/KG/HR 20 mls/hr IV .Q24H [facility] Rx#:[id number] Intake, IV Titration 200 Amount Piperacillin-Tazobactam 3 50 .375 gm In Dextrose/Water 1 50ml.bag @ 12.5 mls/hr IVPB Q8HR [facility] Rx#: [id number] Sodium Chloride 0.9% 1, 150 000 ml @ 75 mls/hr IV . [id number] [facility] Rx#:[id number] Oral 518 Output: Urine 2200 3150 Other: Voiding Method Indwelling Catheter Indwelling Catheter - Labs CBC & Chem 7: 07/28/17 05:27 07/28/17 05:27 Labs: Abnormal Lab Results - Last 24 Hours (Table) 07/28/17 07/28/17 Range/Units 05:27 05:27 WBC 11.7 H (3.8-10.6) k/uL RBC 3.24 L (4.30-5.90) m/uL Hgb 10.1 L (13.0-17.5) gm/dL Hct 33.0 L (39.0-53.0) % MCV 101.8 H (80.0-100.0) fL MCHC 30.5 L (31.0-37.0) g/dL Neutrophils # 10.4 H (1.3-7.7) k/uL Lymphocytes # 0.4 L (1.0-4.8) k/uL Carbon Dioxide 32 H (22-30) mmol/L BUN 84 H* (9-20) mg/dL Creatinine 2.40 H (0.66-1.25) mg/dL Calcium 7.9 L (8.4-10.2) mg/dL Assessment and Plan Plan: Assessment: #1. Nonoliguric acute kidney injury secondary to urinary retention as well as cardiorenal syndrome. Renal function improving with creatinine of 2.4 today. #2. Systolic CHF with ejection fraction of 35-40% with moderate tricuspid regurgitation. #3. Chronic kidney disease stage III with baseline creatinine near 1.4 secondary to nephrosclerosis and cardiorenal syndrome. Patient follows with a pumpman out of [facility]. #4. Volume overload. Improving. #5. Urinary retention status post Coyle catheter placement. Also on Flomax. Plan: Continue Lasix 40 mg orally twice daily. Avoid nephrotoxic agents and hypotensive episodes. Repeat electrolytes in the morning.
[2017-07-28] MEDS ORDERED: METOPROLOL TARTRATE 25 MG TAB PO ONE (09:00)
--- NOTE | 2017-07-28 11:17 | PN ---
PROGRESS NOTE This is a gentleman with chronic atrial fibrillation, came n with chest discomfort, has mild troponin elevation, renal failure with a creatinine in the 2.5-3.0 range. He is resting comfortably, has absolutely no chest tube discomfort. He is on apixaban. I am recommending that we increase the metoprolol to 50 mg in the morning, 25 in the evening, Lipitor 20 mg daily, cut down the aspirin to 81 mg. Blood pressure 130/80, pulse rate about 80-90 in a irregular. JVD 1 cm, no carotid bruit S1, S2 with a short systolic murmur. Lungs reveal improved air entry with fine rales over both bases abdomen lower exam is unchanged. Rest of physical examination is unchanged. MMODL / IJN: [id number] /
--- NOTE | 2017-07-28 15:31 | PN ---
PROGRESS NOTE DATE OF SERVICE: 07/28/2017 This is an 81-year-old gentleman admitted with acute urinary retention, is being closely monitored. The patient has renal failure also. No chest pain. No palpitations. No fever. PHYSICAL EXAM: Alert and oriented x3. Pulse 94, blood pressure 90/60, respirations 16, temperature is normal, pulse ox 98% on 2 L. HEENT: Conjunctivae normal. NECK: No jugular venous distension. CARDIOVASCULAR: S1, S2, muffled. RESPIRATORY: Breath sounds diminished at the bases. A few scattered rhonchi, no crackles. Abdomen is soft, nontender. LEGS: No edema, no swelling. Nervous System: No focal deficits. LABS: WBC is 11.7, hemoglobin is 10.1, creatinine is 2.40. ASSESSMENT: 1. Acute urinary retention with Coyle catheter. 2. Troponin 0.145 indeterminate, microinfarction unlikely with no symptoms and chest pain. 3. Chronic kidney disease stage III. 4. Increased WBC. 5. Anemia. 6. History of recent shortness of breath, possibly secondary to chronic obstructive pulmonary disease acute exacerbation as well as congestive heart failure acute exacerbation with acute on chronic systolic dysfunction,. ejection fraction 35% to 40%. 7. History of recent bilateral pneumonia. 8. Multiple premature atrial contractions. 9. Chronic persistent atrial fibrillation. 10.Acute on chronic renal failure stage III to IV. 11.Remote history of nicotine dependence. 12.Moderate tricuspid regurgitation. 13.Gait dysfunction. 14.NO CODE, NO CARDIOPULMONARY RESUSCITATION, NO VENTILATOR. RECOMMENDATION: recommend to continue current management and symptomatic treatment. Otherwise monitor creatinine closely. Continue with indwelling Coyle catheter, Flomax, broad-spectrum IV antibiotics initiated from the ER. Continue the rest of the medications. Guarded prognosis. Further recommendations to follow. MMODL / IJN: [id number] /
[2017-07-28] MEDS: LEVOFLOXACIN 250 MG TAB PO SCH (17:50)
[2017-07-28] MEDS: TAMSULOSIN 0.4 MG CAP.ER.24H PO SCH (17:51)
[2017-07-28] MEDS ORDERED: METOPROLOL TARTRATE 25 MG TAB PO SCH (21:00)
[2017-07-29] MEDS: PIPERACILLIN-TAZOBACTAM 3.375 GM in DEXTROSE/WATER 1 50ML.BAG IVPB SCH ×2 (01:36→08:35)
[2017-07-29 06:36] LABS: Basophils % (A) 0 %; Eosinophils # (A) 0.1 k/uL (0-0.7); Eosinophils % (A) 1 %; HCT 32.3 % (39.0-53.0); HGB 9.9 gm/dL (13.0-17.5); Hypochromasia Slight; Lymphocytes # (A) 0.4 k/uL (1.0-4.8); Lymphocytes % (A) 4 %; MCH 30.8 pg (25.0-35.0); MCHC 30.8 g/dL (31.0-37.0); MCV 99.9 fL (80.0-100.0); Mean Platelet Volume 8.3; Monocytes # (A) 0.6 k/uL (0-1.0); Monocytes % (A) 7 %; Neutrophils # (A) 8.6 k/uL (1.3-7.7); Neutrophils % (A) 87 %; Platelet Count 195 k/uL (150-450); RBC 3.23 m/uL (4.30-5.90); RDW 13.3 % (11.5-15.5); WBC 9.9 k/uL (3.8-10.6)
[2017-07-29 06:46] LABS: Calcium 8.1 mg/dL (8.4-10.2); Magnesium 2.2 mg/dL (1.6-2.3)
[2017-07-29] MEDS: LEVOTHYROXINE 112 MCG TAB PO SCH (06:47)
[2017-07-29] MEDS: PANTOPRAZOLE 40 MG TABLET PO SCH (06:47)
[2017-07-29] MEDS: APIXABAN 2.5 MG TABLET PO SCH (07:31)
[2017-07-29] MEDS: predniSONE 10 MG TAB PO SCH (07:32)
[2017-07-29] MEDS: FUROSEMIDE 40 MG TAB PO SCH ×2 (07:32→14:03)
[2017-07-29] MEDS: DOCUSATE 100 MG CAP PO SCH (07:32)
[2017-07-29] MEDS: SENNOSIDES-DOCUSATE SODIUM 1 EACH TAB PO SCH (07:33)
[2017-07-29] MEDS: THIAMINE 100 MG TAB PO SCH (07:33)
[2017-07-29] MEDS ORDERED: ATORVASTATIN 20 MG TAB PO SCH (09:00)
[2017-07-29] MEDS ORDERED: ASPIRIN 81 MG PO SCH (09:00)
[2017-07-29] MEDS ORDERED: METOPROLOL TARTRATE 50 MG TAB PO SCH (09:00)
[2017-07-29] MEDS: IPRATROPIUM-ALBUTEROL 3 ML NEB INHALATION SCH ×3 (09:12→16:00)
[2017-07-29 10:12] VITALS: BMI 28.4
--- NOTE | 2017-07-29 10:40 | P.PN ---
Subjective Patient is seen in follow-up for acute kidney injury on chronic kidney disease. He is currently resting in bed. Oral intake is good. Denies chest pain or shortness of breath. He is nonoliguric. He has a Coyle catheter in place due to urinary retention. He is nonoliguric. Currently maintained on Lasix 40 mg orally twice daily. He does have systolic CHF with ejection fraction of 35-40% with moderate tricuspid regurgitation. Urinalysis is benign. Also has history of chronic kidney disease stage III with baseline creatinine near 1.4 secondary to nephrosclerosis and cardiorenal syndrome. No active complaints at this time. Vital signs are stable. General: The patient appeared well nourished and normally developed. HEENT: Head exam is unremarkable. Neck is without jugular venous distension. LUNGS: Lungs are clear to auscultation and percussion. Breath sounds decreased. HEART: Rate and Rhythm are regular. First and second heart sounds normal. No murmurs, rubs or gallops. ABDOMEN: Abdominal exam reveals normal bowel sounds. Non-tender and non- distended. No evidence of peritonitis. EXTREMITITES: Trace edema. Objective - Vital Signs Vital signs: Vital Signs Temp 97.1 F L 07/29/17 07:54 Pulse 92 07/29/17 09:29 Resp 18 07/29/17 07:54 BP 113/55 07/29/17 07:54 Pulse Ox 94 L 07/29/17 07:54 Intake & Output 07/28/17 07/29/17 07/29/17 18:59 06:59 18:59 Intake Total 860 300 240 Output Total 1700 Balance 860 -1400 240 Weight 92.5 kg 92.5 kg Intake: Intake, IV Titration 50 Amount Piperacillin-Tazobactam 3 50 .375 gm In Dextrose/Water 1 50ml.bag @ 12.5 mls/hr IVPB Q8HR [facility] Rx#: [id number] Oral 810 300 240 Output: Urine 1700 Other: Voiding Method Indwelling Catheter Indwelling Catheter # Voids 1 # Bowel Movements 2 - Labs CBC & Chem 7: 07/29/17 06:11 07/29/17 06:11 Labs: Abnormal Lab Results - Last 24 Hours (Table) 07/29/17 07/29/17 Range/Units 06:11 06:11 RBC 3.23 L (4.30-5.90) m/uL Hgb 9.9 L (13.0-17.5) gm/dL Hct 32.3 L (39.0-53.0) % MCHC 30.8 L (31.0-37.0) g/dL Neutrophils # 8.6 H (1.3-7.7) k/uL Lymphocytes # 0.4 L (1.0-4.8) k/uL Carbon Dioxide 34 H (22-30) mmol/L BUN 73 H (9-20) mg/dL Creatinine 2.03 H (0.66-1.25) mg/dL Calcium 8.1 L (8.4-10.2) mg/dL Assessment and Plan Plan: Assessment: #1. Nonoliguric acute kidney injury secondary to urinary retention as well as cardiorenal syndrome. Renal function improving with creatinine of 2.03 today. #2. Systolic CHF with ejection fraction of 35-40% with moderate tricuspid regurgitation. #3. Chronic kidney disease stage III with baseline creatinine near 1.4 secondary to nephrosclerosis and cardiorenal syndrome. Patient follows with a on site coordinator out of [facility]. #4. Volume overload. Improving. #5. Urinary retention status post Coyle catheter placement. Also on Flomax. Plan: Continue Lasix 40 mg orally twice daily. Avoid nephrotoxic agents and hypotensive episodes. Repeat electrolytes in the morning. Stable to be discharged home from nephrology standpoint. He will need to follow -up as an outpatient in the next 1-2 weeks.
--- NOTE | 2017-07-29 11:36 | P.DS ---
Providers Date of admission: 07/28/17 18:10 Attending physician: Donna Gates Consults: 07/26/17 22:01 Consult Physician Routine Consulting Provider: Tristian Fang Consult Reason/Comments: elevated trop Do you want consulting provider notified?: Yes, Notify in am Consult Physician Routine Consulting Provider: Cecille Lei Consult Reason/Comments: acute on chronic kidney failure Do you want consulting provider notified?: Yes, Notify in am Primary care physician: Alvaro Ray Hospital Course: Final Diagnoses: 1. Acute urinary retention 1. Acute on chronic CHF exacerbation,, systolic dysfunction, EF 35-40% 2. Possible Acute COPD exacerbation with acute bronchitis, possible bilateral pneumonia 3. Sinus tachycardia and right bundle branch block, possibly AV block 4. Multiple PACs 5. Chronic persistent Atrial fibrillation, anticoagulated with Eliquis 6. 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 Remote history of nicotine dependence. 8. Moderate tricuspid regurg. 9. Acute hypoxic respiratory failure secondary to acute CHF, COPD exacerbation , and possible pneumonia Hospital course:This is an 81-year-old gentleman previously admitted with acute CHF exacerbation, COPD exacerbation, atrial fibrillation, acute on chronic renal failure, cardiorenal syndrome. Patient had been discharged home, declined subacute rehab, returned with acute urinary retention. Coyle catheter placed. Evaluated by a cardiology, nephrology. Conservative management as per cardiology. Maintained on oral diuretics as per nephrology. Urinalysis benign. Significant clinical improvement. Patient has been cleared by all consults for discharge. Patient has consented to subacute rehab. Patient will be discharged to [facility]. in a stable condition with guarded prognosis. PHYSICAL EXAM: GENERAL:VSS, Sitting up at side of bed, no acute distress, A & O 3.CARDIOVASCULAR: S1, S2 muffled. Positive systolic murmur, no rub, no gallop RESPIRATION: Breath sounds diminished in the bases. Bibasilar crackles.ABDOMEN : Soft, nontender . No guarding.Bowel sounds heard. LEGS: positive edema.NERVOUS SYSTEM:No focal deficits. The impression and plan of care has been dictated as directed. : I performed a history and examination of this patient, discussed the same with the dictator. I agree with the dictator's note ,documented as a scribe. Any additional findings or plans will be noted. Time taken: 35 minutes Patient Condition at Discharge: Stable Plan - Discharge Summary Discharge Rx Participant: No New Discharge Prescriptions: New Bismuth Subsalicylate [Bismatrol] 524 mg PO ACHS PRN ml PRN Reason: Gi Upset guaiFENesin [Mucinex] 600 mg PO Q12HR PRN tablet.er PRN Reason: Congestion Ipratropium-Albuterol Nebulize [Duoneb 0.5 mg-3 mg/3 ml Soln] 3 ml INHALATION RT-QID ampul.neb Ipratropium-Albuterol Nebulize [Duoneb 0.5 mg-3 mg/3 ml Soln] 3 ml INHALATION Q4H PRN ampul.neb PRN Reason: Shortness Of Breath Or Wheezing Levofloxacin [Levaquin] 250 mg PO Q24H #5 tab Metoprolol Tartrate [Lopressor] 25 mg PO HS tab Metoprolol Tartrate [Lopressor] 50 mg PO DAILY tab Continue Tamsulosin HCl 0.4 mg PO DAILY Levothyroxine Sodium [Synthroid] 112 mcg PO DAILY Atorvastatin [Lipitor] 10 mg PO DAILY Thiamine [Vitamin B-1] 100 mg PO DAILY@1200 #30 tab Docusate [Colace] 100 mg PO BID cap Pantoprazole [Protonix] 40 mg PO AC-BRKFST #15 tablet.dr Lopez-Docusate Sodium [Senokot-S] 2 each PO BID tab Acetaminophen Tab [Tylenol] 650 mg PO Q6HR PRN tab PRN Reason: Fever And/ Or Pain Aspirin 81 mg PO DAILY #30 chew Furosemide [Lasix] 40 mg PO BID@0900,1600 #60 tab Apixaban [Eliquis] 2.5 mg PO BID #60 tab predniSONE See Taper PO DIRECTED Discontinued Levofloxacin [Levaquin] 250 mg PO Q24H #5 tab Metoprolol Tartrate [Lopressor] 25 mg PO BID #60 tab Ipratropium-Albuterol Nebulize [Duoneb 0.5 mg-3 mg/3 ml Soln] 3 ml INHALATION RT-QID #120 ampul.neb Discharge Medication List Levothyroxine Sodium [Synthroid] 112 mcg PO DAILY 02/11/15 [History] Tamsulosin HCl 0.4 mg PO DAILY 02/11/15 [History] Atorvastatin [Lipitor] 10 mg PO DAILY 02/12/15 [History] Thiamine [Vitamin B-1] 100 mg PO DAILY@1200 #30 tab 02/14/15 [Rx] Acetaminophen Tab [Tylenol] 650 mg PO Q6HR PRN tab 07/25/17 [Rx] Apixaban [Eliquis] 2.5 mg PO BID #60 tab 07/25/17 [Rx] Aspirin 81 mg PO DAILY #30 chew 07/25/17 [Rx] Docusate [Colace] 100 mg PO BID cap 07/25/17 [Rx] Furosemide [Lasix] 40 mg PO BID@0900,1600 #60 tab 07/25/17 [Rx] Pantoprazole [Protonix] 40 mg PO AC-BRKFST #15 tablet. 07/25/17 [Rx] Sennosides-Docusate Sodium [Senokot-S] 2 each PO BID tab 07/25/17 [Rx] predniSONE See Taper PO DIRECTED 07/27/17 [History] Bismuth Subsalicylate [Bismatrol] 524 mg PO ACHS PRN ml 07/29/17 [Rx] Ipratropium-Albuterol Nebulize [Duoneb 0.5 mg-3 mg/3 ml Soln] 3 ml INHALATION Q4H PRN ampul.neb 07/29/17 [Rx] Ipratropium-Albuterol Nebulize [Duoneb 0.5 mg-3 mg/3 ml Soln] 3 ml INHALATION RT -QID ampul.neb 07/29/17 [Rx] Levofloxacin [Levaquin] 250 mg PO Q24H #5 tab 07/29/17 [Rx] Metoprolol Tartrate [Lopressor] 25 mg PO HS tab 07/29/17 [Rx] Metoprolol Tartrate [Lopressor] 50 mg PO DAILY tab 07/29/17 [Rx] guaiFENesin [Mucinex] 600 mg PO Q12HR PRN tablet.er 07/29/17 [Rx] Follow up Appointment(s)/Referral(s): Alvaro Ray MD [Primary Care Provider] - 3 Days (After discharge from [facility]) Lam Corona DO [STAFF PHYSICIAN] - 1 Week Activity/Diet/Wound Care/Special Instructions: Kristina Almanza [facility] confirm cardiology follow-up appointment prior to discharge. Diet: Renal, cardiac Activity: Limited until follow up cbc,bmp in 3 days
--- NOTE | 2017-07-29 11:40 | P.PN ---
Subjective Progress Note Date: 07/29/17 This is an 81-year-old gentleman who was recently discharged from the hospital, readmitted to the hospital because of difficulty in urination. Patient also had some mild congestive heart failure, associated weakness. Patient does have history of chronic renal failure, atrial fibrillation, hypertension, hyperlipidemia. He was seen and examined today, the patient's renal function yesterday were 84 and 2.4, down to 73 and 2.0 today. Hemoglobin 9.9. We will give the patient 40 mg of IV Lasix 3 times a day for today and then resume oral diuretics from tomorrow. Objective - Vital Signs Vital signs: Vital Signs Temp 97.1 F L 07/29/17 07:54 Pulse 81 07/29/17 11:16 Resp 18 07/29/17 11:16 BP 113/55 07/29/17 07:54 Pulse Ox 94 L 07/29/17 07:54 Intake & Output 07/28/17 07/29/17 07/29/17 18:59 06:59 18:59 Intake Total 860 300 240 Output Total 1700 Balance 860 -1400 240 Weight 92.5 kg 92.5 kg Intake: Intake, IV Titration 50 Amount Piperacillin-Tazobactam 3 50 .375 gm In Dextrose/Water 1 50ml.bag @ 12.5 mls/hr IVPB Q8HR [facility] Rx#: [id number] Oral 810 300 240 Output: Urine 1700 Other: Voiding Method Indwelling Catheter Indwelling Catheter Indwelling Catheter # Voids 1 # Bowel Movements 2 - Exam PHYSICAL EXAMINATION: HEENT: [Head is atraumatic, normocephalic. Pupils equal, round. Neck is supple. There is no elevated jugular venous pressure.] HEART EXAMINATION: [Heart S1, S2 irregularly irregular systolic murmur is heard. No murmur or gallop heard.] CHEST EXAMINATION:[ Lungs reveal fine rales to bilateral bases. No chest wall tenderness is noted on palpation or with deep breathing.] ABDOMEN: [ Soft, obese, nontender. Bowel sounds are heard. No organomegaly noted ]. EXTREMITIES:[ 2+ peripheral pulses with trace evidence of peripheral edema and no calf tenderness noted]. NEUROLOGIC [patient is awake, alert and oriented -3.] - Labs CBC & Chem 7: 07/29/17 06:11 07/29/17 06:11 Labs: Abnormal Lab Results - Last 24 Hours (Table) 07/29/17 07/29/17 Range/Units 06:11 06:11 RBC 3.23 L (4.30-5.90) m/uL Hgb 9.9 L (13.0-17.5) gm/dL Hct 32.3 L (39.0-53.0) % MCHC 30.8 L (31.0-37.0) g/dL Neutrophils # 8.6 H (1.3-7.7) k/uL Lymphocytes # 0.4 L (1.0-4.8) k/uL Carbon Dioxide 34 H (22-30) mmol/L BUN 73 H (9-20) mg/dL Creatinine 2.03 H (0.66-1.25) mg/dL Calcium 8.1 L (8.4-10.2) mg/dL Assessment and Plan Plan: Assessment and plan #1 systolic congestive heart failure acute on chronic #2 acute on chronic kidney disease #3 chronic persistent atrial fibrillation Plan We will give the patient 40 mg of IV Lasix 3 times a day today, then from tomorrow tire changer to oral diuretics. Check lytes BUN and creatinine as well as daily weight in the morning. DNP note has been reviewed, I agree with a documented findings and plan of care. Patient was seen and examined.
[2017-07-29] MEDS ORDERED: FUROSEMIDE 10 MG/ML 4 ML VIAL IV SCH (11:45)
[2017-07-29 12:05] VITALS: BP 97/57; RESP 16; TEMP 97
[2017-07-29 12:08] VITALS: PULSE 86
== END 2017-07-29 16:26 | DRG 682 ==
LOC: EC 20:49 → INTOOBSV 22:01 → 6SEL 22:01 → OBSVTOIN 07-28 18:10
PROVIDERS: ADMIT Internal Medicine; ATTEND Internal Medicine
DX: N17.9 Acute kidney failure, unspecified (principal); I50.23 Acute on chronic systolic (congestive) heart failure; J96.01 Acute respiratory failure with hypoxia; J18.9 Pneumonia, unspecified organism; I48.1 Persistent atrial fibrillation; I13.0 Hypertensive heart and chronic kidney disease with heart failure and stage 1 through stage 4 chronic kidney disease, or unspecified chronic kidney disease; I42.9 Cardiomyopathy, unspecified; I48.2 Chronic atrial fibrillation; J44.0 Chronic obstructive pulmonary disease with (acute) lower respiratory infection; J44.1 Chronic obstructive pulmonary disease with (acute) exacerbation; R33.9 Retention of urine, unspecified; N18.4 Chronic kidney disease, stage 4 (severe); I07.1 Rheumatic tricuspid insufficiency; D64.9 Anemia, unspecified; E03.9 Hypothyroidism, unspecified; E78.5 Hyperlipidemia, unspecified; I45.10 Unspecified right bundle-branch block; I49.1 Atrial premature depolarization; J20.9 Acute bronchitis, unspecified; N18.3 Chronic kidney disease, stage 3 (moderate); Z87.891 Personal history of nicotine dependence; Z79.01 Long term (current) use of anticoagulants; Z79.82 Long term (current) use of aspirin; Z79.899 Other long term (current) drug therapy
CPT/HCPCS: 71045; 80048; 80061; 82550; 82553; 83735; 84484; 85025; 85730; 93005; 94640; 99285